=== PATIENT | female | born 1945 | race Hispanic/Latino ===

== ENCOUNTER 2021-01-07 12:45 | Inpatient (IN) | payer MEDICARE ==
[2021-01-08 00:16] LABS: Basophils # (Auto) 0.1 K/mm3 (0.0-0.1); Basophils % (Auto) 0.5 % (0.0-1.8); Eosinophils # (Auto) 0.1 K/mm3 (0.0-0.4); Eosinophils % (Auto) 1.4 % (0.0-4.3); Hematocrit 36.6 % (30.3-42.9); Hemoglobin 12.4 gm/dl (10.1-14.3); Lymphocytes # (Auto) 1.5 K/mm3 (1.2-5.4); Lymphocytes % (Auto) 13.7 % (13.4-35.0); Mean Corpuscular HGB Conc 34 % (30-34); Mean Corpuscular Volume 94 fl (79-97); Monocytes % (Auto) 9.4 % (0.0-7.3); Platelet Count 257 K/mm3 (140-440); Red Blood Count 3.89 M/mm3 (3.65-5.03); Red Cell Distribution Width 14.3 % (13.2-15.2)
[2021-01-08 00:37] LABS: Hepatitis C Virus Antibody Non-Reactive (NonReactive)
[2021-01-08 01:43] LABS: Hepatitis B Surface Antigen Nonreactive (Negative)
[2021-01-08 03:03] LABS: Alanine Aminotransferase 26 units/L (7-56); Albumin 3.6 g/dL (3.9-5); Blood Urea Nitrogen 18 mg/dL (7-17); Calcium 8.9 mg/dL (8.4-10.2); HDL Cholesterol 70 mg/dL (40-59); Hemolysis Index 6; LDL Cholesterol,Direct 55 mg/dL (50-130)
[2021-01-08 03:07] LABS: BUN/Creatinine Ratio 45
--- NOTE | 2021-01-08 10:31 | History and Physical Report ---
GP History & Physical - History of Present Illness Date of admission: 01/07/21 Date of Examination: 01/08/21 Reason for Admission: Danger to self, Danger to others, Failure of Outpatient Treatment, Severe anxiety/depression, Unable to care for self History of Present Illness: Per Admission Note: Pt reportedly was combative to staff @ the assisted living facility where she resides. She also threatened to kill herself & her daughter. Reportedly talks to herself & argues with herself. Does not sleep well. The patient was seen today. She is confused and talking to herself. The patient's speech is nonsensical and she is difficulty to follow. She is talking about her "mother and father." She then asks me if I know Kendell. The patient says "they all had their own thing." She did she she slept well and feels okay. The patient says "it's not bad for today. We'll work it out." Past Psychiatric History Unable to assess Past Medical History: None reported REVIEW OF SYSTEMS Unable to assess MENTAL STATUS EXAMINATION General Appearance and Behavior: Age appropriate, good hygiene, wearing appropriate clothes. Cooperation: Cooperative, calm Psychomotor Behavior: Psychomotor normal Mood: okay Affect and affective range: congruent with stated mood Thought Process: Impaired Thought Content: Speech: Nonsensical, rambling Suicidal Ideation: Denies Homicidal Ideation: Denies Hallucinations: Delusions: None Impulse Control: Questionable Insight and Judgment: Limited insight, fair judgment Memory: Impaired Attention: Distractible Orientation: Confused Assessment and Plan (1) Dementia with Behavioral Disturbance Treatment Plan Patient admitted for inpatient psychiatric evaluation, medication adjustment and close monitoring The patient's behavior, mood, sleep and appetite will be closely monitored. Patient enrolled in individual and group therapeutic sessions and encouraged to attend. Patient provided with a safe and structured environment. Patient's physical health needs will be addressed by the Hospitalist. Hospitalist Consulted Labs including CBC, CMP, Lipid profile and Hemoglobin A1C levels ordered for baseline reference Social Assessment will be completed and the Credit Professional will work with patient and family to ensure a suitable and safe disposition Medication adjustment will be made as clinically indicated Continue home medications Usual Wellness Anglican/Preservation: - Start Trazodone 50 mg po QHS & 50 mg po QHS PRN between 10 PM & 2 AM for insomnia - Start Melatonin 5 mg po QHS to promote circadian rhythm The patient agreed on the treatment plan, understood the risk, benefit, alternative treatment, potential consequence of no treatment, and gave informed consent. Estimated days: 5 Post hospital care: primary care provider, psychiatric provider Case staffed with Dr. Pendleton Legal Status: Voluntary Reaction to Hospitalization: Accepting Medications and Allergies Allergies Allergy/AdvReac Type Severity Reaction Status Date / Time hydromorphone [From Dilaudid] Allergy Unknown Verified 01/07/21 14:25 peanut Allergy Unknown Verified 01/07/21 14:25 Home Medications Medication Instructions Recorded Confirmed Last Taken Type Amlodipine Besylate [Norvasc] 5 mg PO DAILY 01/07/21 01/07/21 Unknown History Melatonin [Melatonin 10MG TAB] 10 mg PO HS 01/07/21 01/07/21 Unknown History Memantine [Namenda] 10 mg PO BID 01/07/21 01/07/21 Unknown History Nystatin Cream [Mycostatin Cream] 1 applic TP BID 01/07/21 01/07/21 Unknown History Rosuvastatin Calcium [Crestor] 20 mg PO QHS 01/07/21 01/07/21 Unknown History Vitamin E 400 unit PO DAILY 01/07/21 01/07/21 Unknown History busPIRone [Buspar] 5 mg PO BID 01/07/21 01/07/21 Unknown History donepeziL [Aricept] 10 mg PO QDAY 01/07/21 01/07/21 Unknown History methIMAzole [Tapazole] 5 mg PO QDAY 01/07/21 01/07/21 Unknown History Results - Results Labs/Vitals: Laboratory Last Values WBC 11.0 K/mm3 (4.5-11.0) 01/07/21 23:06 RBC 3.89 M/mm3 (3.65-5.03) 01/07/21 23:06 Hgb 12.4 gm/dl (10.1-14.3) 01/07/21 23:06 Hct 36.6 % (30.3-42.9) 01/07/21 23:06 MCV 94 fl (79-97) 01/07/21 23:06 MCH 32 pg (28-32) 01/07/21 23:06 MCHC 34 % (30-34) 01/07/21 23:06 RDW 14.3 % (13.2-15.2) 01/07/21 23:06 Plt Count 257 K/mm3 (140-440) 01/07/21 23:06 Lymph % (Auto) 13.7 % (13.4-35.0) 01/07/21 23:06 [place] % (Auto) 9.4 % (0.0-7.3) H 01/07/21 23:06 Eos % (Auto) 1.4 % (0.0-4.3) 01/07/21 23:06 Baso % (Auto) 0.5 % (0.0-1.8) 01/07/21 23:06 Lymph # (Auto) 1.5 K/mm3 (1.2-5.4) 01/07/21 23:06 [place] # (Auto) 1.0 K/mm3 (0.0-0.8) H 01/07/21 23:06 Eos # (Auto) 0.1 K/mm3 (0.0-0.4) 01/07/21 23:06 Baso # (Auto) 0.1 K/mm3 (0.0-0.1) 01/07/21 23:06 Seg Neutrophils % 75.0 % (40.0-70.0) H 01/07/21 23:06 Seg Neutrophils # 8.2 K/mm3 (1.8-7.7) H 01/07/21 23:06 Sodium 141 mmol/L (137-145) 01/07/21 23:06 Potassium 3.7 mmol/L (3.6-5.0) 01/07/21 23:06 Chloride 105.6 mmol/L (98-107) 01/07/21 23:06 Carbon Dioxide 19 mmol/L (22-30) L 01/07/21 23:06 Anion Gap 20 mmol/L 01/07/21 23:06 BUN 18 mg/dL (7-17) H 01/07/21 23:06 Creatinine 0.4 mg/dL (0.6-1.2) L 01/07/21 23:06 Estimated GFR > 60 ml/min 01/07/21 23:06 BUN/Creatinine Ratio 45 % 01/07/21 23:06 Glucose 92 mg/dL (65-100) 01/07/21 23:06 POC Glucose 158 mg/dL (70-105) H 01/07/21 19:47 Calcium 8.9 mg/dL (8.4-10.2) 01/07/21 23:06 Total Bilirubin 0.20 mg/dL (0.1-1.2) 01/07/21 23:06 AST 25 units/L (5-40) 01/07/21 23:06 ALT 26 units/L (7-56) 01/07/21 23:06 Alkaline Phosphatase 92 units/L (35-129) 01/07/21 23:06 Total Protein 6.8 g/dL (6.3-8.2) 01/07/21 23:06 Albumin 3.6 g/dL (3.9-5) L 01/07/21 23:06 Albumin/Globulin Ratio 1.1 % 01/07/21 23:06 Triglycerides 68 mg/dL (2-149) 01/07/21 23:06 Cholesterol 140 mg/dL (50-199) 01/07/21 23:06 LDL Cholesterol Direct 55 mg/dL (50-130) 01/07/21 23:06 HDL Cholesterol 70 mg/dL (40-59) H 01/07/21 23:06 Cholesterol/HDL Ratio 2.00 % 01/07/21 23:06 TSH 1.960 mlU/mL (0.270-4.200) 01/07/21 23:06 Hepatitis A IgM Ab Non-reactive (NonReactive) 01/07/21 23:06 Hep Bs Antigen Nonreactive (Negative) 01/07/21 23:06 Hep B Core IgM Ab Non-reactive (NonReactive) 01/07/21 23:06 Hepatitis C Antibody Non-reactive (NonReactive) 01/07/21 23:06 Last Vital Signs Temp 97.6 F 01/07/21 22:00 Pulse 89 01/07/21 22:00 Resp 18 01/07/21 22:00 BP 96/56 01/07/21 22:00 Pulse Ox Physical Examination - Constitutional Vitals: Vital Signs Temp Pulse Resp BP Pulse Ox 97.6 F 89 18 96/56 01/07/21 22:00 01/07/21 22:00 01/07/21 22:00 01/07/21 22:00 Temperature -Last 24 Hours Temperature 97.6 F Mental Status Exam - Vital signs Last Vital Signs Temp 97.6 F 01/07/21 22:00 Pulse 89 01/07/21 22:00 Resp 18 01/07/21 22:00 BP 96/56 01/07/21 22:00 Pulse Ox Physician Certification - Certification Statement Physician Certification Statement: This is an acknowledgement statement that ARCADIO CREWS is a 75 year old F who requires inpatient psychiatric admission for treatment which could reasonably be expected to improve the patient's condition for Estimated period of time patient will need to remain in the hospital: [ ] Plan for post-hospital care: [ ]
[2021-01-08] MEDS: busPIRone 5 MG TAB PO SCH ×2 (21:30→22:15)
[2021-01-08] MEDS: MEMANTINE 10 MG TAB PO SCH ×2 (21:30→22:16)
[2021-01-08] MEDS: MELATONIN 5 MG TAB PO SCH (21:30)
[2021-01-08] MEDS: NYSTATIN CREAM 15 GM TUBE TP SCH ×2 (21:30→22:16)
[2021-01-08] MEDS ORDERED: NON-FORMULARY EACH (Rosuvastatin Calcium [Crestor] 20 MG Tablet) PO SCH (22:00)
[2021-01-08] MEDS ORDERED: NON-FORMULARY EACH (Melatonin [Melatonin 10mg Tab] 10 MG Tablet) PO SCH (22:00)
[2021-01-08] MEDS: DONEPEZIL 10 MG TAB PO SCH (22:15)
[2021-01-08] MEDS: amLODIPine 5 MG TAB PO SCH (22:15)
[2021-01-08] MEDS: methIMAzole 5 MG TAB PO SCH (22:16)
--- NOTE | 2021-01-09 08:49 | Progress Note ---
Subjective Date of service: 01/09/21 Principal diagnosis: Dementia with Behavioral Disturbance Subjective Comment: The patient was seen today. She has orange marker on her eyebrows. She is confused. She says "I'm dressed and back in school now." The patient says she feels okay when asked. She then starts saying her daughter was head here. REVIEW OF SYSTEMS Unable to assess MENTAL STATUS EXAMINATION General Appearance and Behavior: Age appropriate, good hygiene, wearing appropriate clothes. Cooperation: Cooperative, calm Psychomotor Behavior: Psychomotor normal Mood: okay Affect and affective range: congruent with stated mood Thought Process: Impaired Thought Content: Speech: Nonsensical, rambling Suicidal Ideation: Denies Homicidal Ideation: Denies Hallucinations: Delusions: None Impulse Control: Questionable Insight and Judgment: Limited insight, fair judgment Memory: Impaired Attention: Distractible Orientation: Confused Assessment and Plan (1) Dementia with Behavioral Disturbance Treatment Plan Patient admitted for inpatient psychiatric evaluation, medication adjustment and close monitoring The patient's behavior, mood, sleep and appetite will be closely monitored. Patient enrolled in individual and group therapeutic sessions and encouraged to attend. Patient provided with a safe and structured environment. Patient's physical health needs will be addressed by the Hospitalist. Hospitalist Consulted Labs including CBC, CMP, Lipid profile and Hemoglobin A1C levels ordered for baseline reference Social Assessment will be completed and the Agronomy Professor will work with patient and family to ensure a suitable and safe disposition Medication adjustment will be made as clinically indicated Zoloft 25mg po daily Usual Wellness Faith/Preservation: - Start Trazodone 50 mg po QHS & 50 mg po QHS PRN between 10 PM & 2 AM for insomnia - Start Melatonin 5 mg po QHS to promote circadian rhythm The patient agreed on the treatment plan, understood the risk, benefit, alternative treatment, potential consequence of no treatment, and gave informed consent. Estimated days: 5 Post hospital care: primary care provider, psychiatric provider Case staffed with Dr. Pendleton Medications and Allergies Allergies Allergy/AdvReac Type Severity Reaction Status Date / Time hydromorphone [From Dilaudid] Allergy Unknown Verified 01/07/21 14:25 peanut Allergy Unknown Verified 01/07/21 14:25 Home Medications Medication Instructions Recorded Confirmed Last Taken Type Amlodipine Besylate [Norvasc] 5 mg PO DAILY 01/07/21 01/07/21 Unknown History Melatonin [Melatonin 10MG TAB] 10 mg PO HS 01/07/21 01/07/21 Unknown History Memantine [Namenda] 10 mg PO BID 01/07/21 01/07/21 Unknown History Nystatin Cream [Mycostatin Cream] 1 applic TP BID 01/07/21 01/07/21 Unknown History Rosuvastatin Calcium [Crestor] 20 mg PO QHS 01/07/21 01/07/21 Unknown History Vitamin E 400 unit PO DAILY 01/07/21 01/07/21 Unknown History busPIRone [Buspar] 5 mg PO BID 01/07/21 01/07/21 Unknown History donepeziL [Aricept] 10 mg PO QDAY 01/07/21 01/07/21 Unknown History methIMAzole [Tapazole] 5 mg PO QDAY 01/07/21 01/07/21 Unknown History Active Meds: Active Medications Amlodipine Besylate (Amlodipine 5 Mg Tab) 5 mg PO DAILY [facility] Last Admin: 01/08/21 22:15 Dose: Not Given Documented by: Atorvastatin Calcium (Atorvastatin 40 Mg Tab) 40 mg PO QHS [facility] Last Admin: 01/08/21 21:30 Dose: 40 mg Documented by: Buspirone HCl (Buspirone 5 Mg Tab) 5 mg PO BID [facility] Last Admin: 01/08/21 22:15 Dose: Not Given Documented by: Donepezil HCl (Donepezil 10 Mg Tab) 10 mg PO QDAY [facility] Last Admin: 01/08/21 22:15 Dose: Not Given Documented by: Melatonin (Melatonin 5 Mg Tab) 10 mg PO QHS [facility] Last Admin: 01/08/21 21:30 Dose: 10 mg Documented by: Memantine (Memantine 10 Mg Tab) 10 mg PO BID [facility] Last Admin: 01/08/21 22:16 Dose: Not Given Documented by: Methimazole (Methimazole 5 Mg Tab) 5 mg PO QDAY [facility] Last Admin: 01/08/21 22:16 Dose: Not Given Documented by: Nystatin (Nystatin Cream 15 Gm Tube) 1 applic TP BID [facility] Last Admin: 01/08/21 22:16 Dose: Not Given Documented by: Results - Results Labs/Vitals: Laboratory Last Values WBC 11.0 K/mm3 (4.5-11.0) 01/07/21 23:06 RBC 3.89 M/mm3 (3.65-5.03) 01/07/21 23:06 Hgb 12.4 gm/dl (10.1-14.3) 01/07/21 23:06 Hct 36.6 % (30.3-42.9) 01/07/21 23:06 MCV 94 fl (79-97) 01/07/21 23:06 MCH 32 pg (28-32) 01/07/21 23:06 MCHC 34 % (30-34) 01/07/21 23:06 RDW 14.3 % (13.2-15.2) 01/07/21 23:06 Plt Count 257 K/mm3 (140-440) 01/07/21 23:06 Lymph % (Auto) 13.7 % (13.4-35.0) 01/07/21 23:06 [place] % (Auto) 9.4 % (0.0-7.3) H 01/07/21 23:06 Eos % (Auto) 1.4 % (0.0-4.3) 01/07/21 23:06 Baso % (Auto) 0.5 % (0.0-1.8) 01/07/21 23:06 Lymph # (Auto) 1.5 K/mm3 (1.2-5.4) 01/07/21 23:06 [place] # (Auto) 1.0 K/mm3 (0.0-0.8) H 01/07/21 23:06 Eos # (Auto) 0.1 K/mm3 (0.0-0.4) 01/07/21 23:06 Baso # (Auto) 0.1 K/mm3 (0.0-0.1) 01/07/21 23:06 Seg Neutrophils % 75.0 % (40.0-70.0) H 01/07/21 23:06 Seg Neutrophils # 8.2 K/mm3 (1.8-7.7) H 01/07/21 23:06 Sodium 141 mmol/L (137-145) 01/07/21 23:06 Potassium 3.7 mmol/L (3.6-5.0) 01/07/21 23:06 Chloride 105.6 mmol/L (98-107) 01/07/21 23:06 Carbon Dioxide 19 mmol/L (22-30) L 01/07/21 23:06 Anion Gap 20 mmol/L 01/07/21 23:06 BUN 18 mg/dL (7-17) H 01/07/21 23:06 Creatinine 0.4 mg/dL (0.6-1.2) L 01/07/21 23:06 Estimated GFR > 60 ml/min 01/07/21 23:06 BUN/Creatinine Ratio 45 % 01/07/21 23:06 Glucose 92 mg/dL (65-100) 01/07/21 23:06 POC Glucose 158 mg/dL (70-105) H 01/07/21 19:47 Calcium 8.9 mg/dL (8.4-10.2) 01/07/21 23:06 Total Bilirubin 0.20 mg/dL (0.1-1.2) 01/07/21 23:06 AST 25 units/L (5-40) 01/07/21 23:06 ALT 26 units/L (7-56) 01/07/21 23:06 Alkaline Phosphatase 92 units/L (35-129) 01/07/21 23:06 Total Protein 6.8 g/dL (6.3-8.2) 01/07/21 23:06 Albumin 3.6 g/dL (3.9-5) L 01/07/21 23:06 Albumin/Globulin Ratio 1.1 % 01/07/21 23:06 Triglycerides 68 mg/dL (2-149) 01/07/21 23:06 Cholesterol 140 mg/dL (50-199) 01/07/21 23:06 LDL Cholesterol Direct 55 mg/dL (50-130) 01/07/21 23:06 HDL Cholesterol 70 mg/dL (40-59) H 01/07/21 23:06 Cholesterol/HDL Ratio 2.00 % 01/07/21 23:06 TSH 1.960 mlU/mL (0.270-4.200) 01/07/21 23:06 Hepatitis A IgM Ab Non-reactive (NonReactive) 01/07/21 23:06 Hep Bs Antigen Nonreactive (Negative) 01/07/21 23:06 Hep B Core IgM Ab Non-reactive (NonReactive) 01/07/21 23:06 Hepatitis C Antibody Non-reactive (NonReactive) 01/07/21 23:06 Last Vital Signs Temp 98.9 F 01/08/21 23:53 Pulse 81 01/08/21 23:53 Resp 16 01/08/21 23:53 BP 135/57 01/08/21 23:53 Pulse Ox 95 01/08/21 23:53
[2021-01-09] MEDS: amLODIPine 5 MG TAB PO SCH (09:47)
[2021-01-09] MEDS: busPIRone 5 MG TAB PO SCH ×2 (10:07→21:04)
[2021-01-09] MEDS: SERTRALINE 25 MG TAB PO SCH (10:07)
[2021-01-09] MEDS: DONEPEZIL 10 MG TAB PO SCH (10:07)
[2021-01-09] MEDS: MEMANTINE 10 MG TAB PO SCH ×2 (10:07→21:04)
[2021-01-09] MEDS: methIMAzole 5 MG TAB PO SCH (10:07)
[2021-01-09] MEDS: NYSTATIN CREAM 15 GM TUBE TP SCH ×2 (10:08→21:03)
[2021-01-09] MEDS: MELATONIN 5 MG TAB PO SCH (21:04)
--- NOTE | 2021-01-10 08:29 | Consultation ---
History of Present Illness - Reason for Consult Consult date: 01/10/21 Medical management Requesting physician: ZAFAR COLLAZO - History of Present Illness 75-year-old female patient with multiple psychiatric diagnoses and medical problems like hypertension dyslipidemia dementia hyper thyroidism was admitted to [facility] floor to evaluate and treat patient's severe anxiety depression unable to care for self and failure to respond to outpatient therapy. Hospitalist service was consulted for medical consult and medical management. When I evaluated the patient patient is alert and awake but confused, responding to very simple questions appropriately Patient is under activities room, when asked if anything was bothering her she said no Patient denies chest pain or shortness of breath No other complaints reported by the nursing staff Past History Past Medical History: hyperthyroidism, hypertension, hyperlipidemia, other (Dementia) Past Surgical History: No surgical history Social history: smoking (Former smoker), other (Denies recreational drug use). denies: alcohol abuse Family history: no significant family history Medications and Allergies Allergies Allergy/AdvReac Type Severity Reaction Status Date / Time hydromorphone [From Dilaudid] Allergy Unknown Verified 01/07/21 14:25 peanut Allergy Unknown Verified 01/07/21 14:25 Home Medications Medication Instructions Recorded Confirmed Last Taken Type Amlodipine Besylate [Norvasc] 5 mg PO DAILY 01/07/21 01/07/21 Unknown History Melatonin [Melatonin 10MG TAB] 10 mg PO HS 01/07/21 01/07/21 Unknown History Memantine [Namenda] 10 mg PO BID 01/07/21 01/07/21 Unknown History Nystatin Cream [Mycostatin Cream] 1 applic TP BID 01/07/21 01/07/21 Unknown History Rosuvastatin Calcium [Crestor] 20 mg PO QHS 01/07/21 01/07/21 Unknown History Vitamin E 400 unit PO DAILY 01/07/21 01/07/21 Unknown History busPIRone [Buspar] 5 mg PO BID 01/07/21 01/07/21 Unknown History donepeziL [Aricept] 10 mg PO QDAY 01/07/21 01/07/21 Unknown History methIMAzole [Tapazole] 5 mg PO QDAY 01/07/21 01/07/21 Unknown History Active Meds: Active Medications Amlodipine Besylate (Amlodipine 5 Mg Tab) 5 mg PO DAILY [facility] Last Admin: 01/09/21 09:47 Dose: Not Given Documented by: Atorvastatin Calcium (Atorvastatin 40 Mg Tab) 40 mg PO QHS [facility] Last Admin: 01/09/21 21:04 Dose: 40 mg Documented by: Buspirone HCl (Buspirone 5 Mg Tab) 5 mg PO BID [facility] Last Admin: 01/09/21 21:04 Dose: 5 mg Documented by: Donepezil HCl (Donepezil 10 Mg Tab) 10 mg PO QDAY [facility] Last Admin: 01/09/21 10:07 Dose: 10 mg Documented by: Melatonin (Melatonin 5 Mg Tab) 10 mg PO QHS [facility] Last Admin: 01/09/21 21:04 Dose: 10 mg Documented by: Memantine (Memantine 10 Mg Tab) 10 mg PO BID [facility] Last Admin: 01/09/21 21:04 Dose: 10 mg Documented by: Methimazole (Methimazole 5 Mg Tab) 5 mg PO QDAY [facility] Last Admin: 01/09/21 10:07 Dose: 5 mg Documented by: Nystatin (Nystatin Cream 15 Gm Tube) 1 applic TP BID [facility] Last Admin: 01/09/21 21:03 Dose: 1 applic Documented by: Sertraline HCl (Sertraline 25 Mg Tab) 25 mg PO QDAY [facility] Last Admin: 01/09/21 10:07 Dose: 25 mg Documented by: Review of Systems ROS unobtainable: due to mental status Exam - Constitutional Vitals: Temp Pulse Resp BP Pulse Ox 98.7 F 76 19 120/73 91 01/10/21 07:47 01/10/21 07:47 01/10/21 07:47 01/10/21 07:47 01/10/21 07:47 General appearance: Present: no acute distress, well-nourished, other (Confused at times) - EENT Eyes: Present: PERRL, EOM intact - Neck Neck: Present: supple, enlarged thyroid - Respiratory Respiratory effort: normal Respiratory: bilateral: diminished, negative: rales, rhonchi, wheezing - Cardiovascular Rhythm: regular Heart Sounds: Present: S1 & S2 - Extremities Extremities: no ischemia, No edema - Abdominal General gastrointestinal: Present: soft, non-tender, non-distended, normal bowel sounds - Integumentary Integumentary: Present: clear, warm - Musculoskeletal Musculoskeletal: generalized weakness - Psychiatric Psychiatric: cooperative, other (Confused) - Neurologic Neurologic: moves all extremities Results - Labs CBC & Chem 7: 01/07/21 23:06 01/07/21 23:06 Assessment and Plan --Hypertension; well controlled Continue current antihypertensives and as needed medications --History of hypothyroidism; Continue home medication methimazole Supportive care --Dementia; continue Aricept and memantine Supportive care --Dyslipidemia; Low-cholesterol diet, continue statin --History of behavioral disturbances; Management per psych --DVT prophylaxis; SCDs while resting We will closely monitor the patient and adjust the management as needed Thank you for this consult we will follow the patient along with you Call us with questions Plan of care reviewed with patient's nurse .
[2021-01-10] MEDS: amLODIPine 5 MG TAB PO SCH (09:52)
[2021-01-10] MEDS: methIMAzole 5 MG TAB PO SCH (09:52)
[2021-01-10] MEDS: MEMANTINE 10 MG TAB PO SCH ×2 (09:53→21:01)
[2021-01-10] MEDS: SERTRALINE 25 MG TAB PO SCH (09:53)
[2021-01-10] MEDS: busPIRone 5 MG TAB PO SCH ×2 (09:53→21:01)
[2021-01-10] MEDS: DONEPEZIL 10 MG TAB PO SCH (09:53)
[2021-01-10] MEDS: NYSTATIN CREAM 15 GM TUBE TP SCH ×2 (09:53→21:00)
--- NOTE | 2021-01-10 10:09 | Progress Note ---
Subjective Date of service: 01/10/21 Principal diagnosis: Dementia with Behavioral Disturbance Subjective Comment: The patient was seen today. She has orange marker on her eyebrows. She is confused. She says she feels fine and she slept well. The patient denies SI/HI. She is talking to herself and leaning in front of her juice whispering "you're hurting me." REVIEW OF SYSTEMS Unable to assess MENTAL STATUS EXAMINATION General Appearance and Behavior: Age appropriate, good hygiene, wearing appropriate clothes. Cooperation: Cooperative, calm Psychomotor Behavior: Psychomotor normal Mood: okay Affect and affective range: congruent with stated mood Thought Process: Impaired Thought Content: Speech: Nonsensical, rambling Suicidal Ideation: Denies Homicidal Ideation: Denies Hallucinations: Delusions: None Impulse Control: Questionable Insight and Judgment: Limited insight, fair judgment Memory: Impaired Attention: Distractible Orientation: Confused Assessment and Plan (1) Dementia with Behavioral Disturbance Treatment Plan Patient admitted for inpatient psychiatric evaluation, medication adjustment and close monitoring The patient's behavior, mood, sleep and appetite will be closely monitored. Patient enrolled in individual and group therapeutic sessions and encouraged to attend. Patient provided with a safe and structured environment. Patient's physical health needs will be addressed by the Hospitalist. Hospitalist Consulted Labs including CBC, CMP, Lipid profile and Hemoglobin A1C levels ordered for baseline reference Social Assessment will be completed and the Parts Back Counter Man will work with patient and family to ensure a suitable and safe disposition Medication adjustment will be made as clinically indicated Risperidone 0.25mg po BID Usual Wellness [facility]: - Start Trazodone 50 mg po QHS & 50 mg po QHS PRN between 10 PM & 2 AM for insomnia - Start Melatonin 5 mg po QHS to promote circadian rhythm The patient agreed on the treatment plan, understood the risk, benefit, alternative treatment, potential consequence of no treatment, and gave informed consent. Estimated days: 5 Post hospital care: primary care provider, psychiatric provider Case staffed with Dr. Pendleton Medications and Allergies Allergies Allergy/AdvReac Type Severity Reaction Status Date / Time hydromorphone [From Dilaudid] Allergy Unknown Verified 01/07/21 14:25 peanut Allergy Unknown Verified 01/07/21 14:25 Home Medications Medication Instructions Recorded Confirmed Last Taken Type Amlodipine Besylate [Norvasc] 5 mg PO DAILY 01/07/21 01/07/21 Unknown History Melatonin [Melatonin 10MG TAB] 10 mg PO HS 01/07/21 01/07/21 Unknown History Memantine [Namenda] 10 mg PO BID 01/07/21 01/07/21 Unknown History Nystatin Cream [Mycostatin Cream] 1 applic TP BID 01/07/21 01/07/21 Unknown History Rosuvastatin Calcium [Crestor] 20 mg PO QHS 01/07/21 01/07/21 Unknown History Vitamin E 400 unit PO DAILY 01/07/21 01/07/21 Unknown History busPIRone [Buspar] 5 mg PO BID 01/07/21 01/07/21 Unknown History donepeziL [Aricept] 10 mg PO QDAY 01/07/21 01/07/21 Unknown History methIMAzole [Tapazole] 5 mg PO QDAY 01/07/21 01/07/21 Unknown History Active Meds: Active Medications Amlodipine Besylate (Amlodipine 5 Mg Tab) 5 mg PO DAILY [facility] Last Admin: 01/10/21 09:52 Dose: 5 mg Documented by: Atorvastatin Calcium (Atorvastatin 40 Mg Tab) 40 mg PO QHS [facility] Last Admin: 01/09/21 21:04 Dose: 40 mg Documented by: Buspirone HCl (Buspirone 5 Mg Tab) 5 mg PO BID [facility] Last Admin: 01/10/21 09:53 Dose: 5 mg Documented by: Donepezil HCl (Donepezil 10 Mg Tab) 10 mg PO QDAY [facility] Last Admin: 01/10/21 09:53 Dose: 10 mg Documented by: Melatonin (Melatonin 5 Mg Tab) 10 mg PO QHS [facility] Last Admin: 01/09/21 21:04 Dose: 10 mg Documented by: Memantine (Memantine 10 Mg Tab) 10 mg PO BID [facility] Last Admin: 01/10/21 09:53 Dose: 10 mg Documented by: Methimazole (Methimazole 5 Mg Tab) 5 mg PO QDAY [facility] Last Admin: 01/10/21 09:52 Dose: 5 mg Documented by: Nystatin (Nystatin Cream 15 Gm Tube) 1 applic TP BID [facility] Last Admin: 01/10/21 09:53 Dose: 1 applic Documented by: Sertraline HCl (Sertraline 25 Mg Tab) 25 mg PO QDAY [facility] Last Admin: 01/10/21 09:53 Dose: 25 mg Documented by: Results - Results Labs/Vitals: Laboratory Last Values WBC 11.0 K/mm3 (4.5-11.0) 01/07/21 23:06 RBC 3.89 M/mm3 (3.65-5.03) 01/07/21 23:06 Hgb 12.4 gm/dl (10.1-14.3) 01/07/21 23:06 Hct 36.6 % (30.3-42.9) 01/07/21 23:06 MCV 94 fl (79-97) 01/07/21 23:06 MCH 32 pg (28-32) 01/07/21 23:06 MCHC 34 % (30-34) 01/07/21 23:06 RDW 14.3 % (13.2-15.2) 01/07/21 23:06 Plt Count 257 K/mm3 (140-440) 01/07/21 23:06 Lymph % (Auto) 13.7 % (13.4-35.0) 01/07/21 23:06 [place] % (Auto) 9.4 % (0.0-7.3) H 01/07/21 23:06 Eos % (Auto) 1.4 % (0.0-4.3) 01/07/21 23:06 Baso % (Auto) 0.5 % (0.0-1.8) 01/07/21 23:06 Lymph # (Auto) 1.5 K/mm3 (1.2-5.4) 01/07/21 23:06 [place] # (Auto) 1.0 K/mm3 (0.0-0.8) H 01/07/21 23:06 Eos # (Auto) 0.1 K/mm3 (0.0-0.4) 01/07/21 23:06 Baso # (Auto) 0.1 K/mm3 (0.0-0.1) 01/07/21 23:06 Seg Neutrophils % 75.0 % (40.0-70.0) H 01/07/21 23:06 Seg Neutrophils # 8.2 K/mm3 (1.8-7.7) H 01/07/21 23:06 Sodium 141 mmol/L (137-145) 01/07/21 23:06 Potassium 3.7 mmol/L (3.6-5.0) 01/07/21 23:06 Chloride 105.6 mmol/L (98-107) 01/07/21 23:06 Carbon Dioxide 19 mmol/L (22-30) L 01/07/21 23:06 Anion Gap 20 mmol/L 01/07/21 23:06 BUN 18 mg/dL (7-17) H 01/07/21 23:06 Creatinine 0.4 mg/dL (0.6-1.2) L 01/07/21 23:06 Estimated GFR > 60 ml/min 01/07/21 23:06 BUN/Creatinine Ratio 45 % 01/07/21 23:06 Glucose 92 mg/dL (65-100) 01/07/21 23:06 POC Glucose 158 mg/dL (70-105) H 01/07/21 19:47 Calcium 8.9 mg/dL (8.4-10.2) 01/07/21 23:06 Total Bilirubin 0.20 mg/dL (0.1-1.2) 01/07/21 23:06 AST 25 units/L (5-40) 01/07/21 23:06 ALT 26 units/L (7-56) 01/07/21 23:06 Alkaline Phosphatase 92 units/L (35-129) 01/07/21 23:06 Total Protein 6.8 g/dL (6.3-8.2) 01/07/21 23:06 Albumin 3.6 g/dL (3.9-5) L 01/07/21 23:06 Albumin/Globulin Ratio 1.1 % 01/07/21 23:06 Triglycerides 68 mg/dL (2-149) 01/07/21 23:06 Cholesterol 140 mg/dL (50-199) 01/07/21 23:06 LDL Cholesterol Direct 55 mg/dL (50-130) 01/07/21 23:06 HDL Cholesterol 70 mg/dL (40-59) H 01/07/21 23:06 Cholesterol/HDL Ratio 2.00 % 01/07/21 23:06 TSH 1.960 mlU/mL (0.270-4.200) 01/07/21 23:06 Hepatitis A IgM Ab Non-reactive (NonReactive) 01/07/21 23:06 Hep Bs Antigen Nonreactive (Negative) 01/07/21 23:06 Hep B Core IgM Ab Non-reactive (NonReactive) 01/07/21 23:06 Hepatitis C Antibody Non-reactive (NonReactive) 01/07/21 23:06 Last Vital Signs Temp 98.7 F 01/10/21 08:49 Pulse 88 01/10/21 09:52 Resp 19 01/10/21 07:47 BP 120/73 01/10/21 09:52 Pulse Ox 91 01/10/21 07:47
[2021-01-10] MEDS: risperiDONE 0.25 MG TAB PO SCH ×2 (10:32→21:01)
[2021-01-10] MEDS: MELATONIN 5 MG TAB PO SCH (21:01)
--- NOTE | 2021-01-11 09:22 | Progress Note ---
Subjective Date of service: 01/11/21 Principal diagnosis: Dementia with Behavioral Disturbance Subjective Comment: The patient was seen today. She is lying down in bed awake. The patient is confused, but pleasant. She says "life is great." The patient says she feels "fine" when asked. She also says she slept good. She is rambling. REVIEW OF SYSTEMS Unable to assess MENTAL STATUS EXAMINATION General Appearance and Behavior: Age appropriate, good hygiene, wearing appropriate clothes. Cooperation: Cooperative, calm Psychomotor Behavior: Psychomotor normal Mood: okay Affect and affective range: congruent with stated mood Thought Process: Impaired Thought Content: Speech: Nonsensical, rambling Suicidal Ideation: Denies Homicidal Ideation: Denies Hallucinations: Delusions: None Impulse Control: Questionable Insight and Judgment: Limited insight, fair judgment Memory: Impaired Attention: Distractible Orientation: Confused Assessment and Plan (1) Dementia with Behavioral Disturbance Treatment Plan Patient admitted for inpatient psychiatric evaluation, medication adjustment and close monitoring The patient's behavior, mood, sleep and appetite will be closely monitored. Patient enrolled in individual and group therapeutic sessions and encouraged to attend. Patient provided with a safe and structured environment. Patient's physical health needs will be addressed by the Hospitalist. Hospitalist Consulted Labs including CBC, CMP, Lipid profile and Hemoglobin A1C levels ordered for baseline reference Social Assessment will be completed and the Night Shift will work with patient and family to ensure a suitable and safe disposition Medication adjustment will be made as clinically indicated Started Risperidone 0.25mg po BID yesterday Usual Wellness [facility]: - Start Trazodone 50 mg po QHS & 50 mg po QHS PRN between 10 PM & 2 AM for insomnia - Start Melatonin 5 mg po QHS to promote circadian rhythm The patient agreed on the treatment plan, understood the risk, benefit, alternative treatment, potential consequence of no treatment, and gave informed consent. Estimated days: 5 Post hospital care: primary care provider, psychiatric provider Case staffed with Dr. Pendleton Medications and Allergies Allergies Allergy/AdvReac Type Severity Reaction Status Date / Time hydromorphone [From Dilaudid] Allergy Unknown Verified 01/07/21 14:25 peanut Allergy Unknown Verified 01/07/21 14:25 Home Medications Medication Instructions Recorded Confirmed Last Taken Type Amlodipine Besylate [Norvasc] 5 mg PO DAILY 01/07/21 01/07/21 Unknown History Melatonin [Melatonin 10MG TAB] 10 mg PO HS 01/07/21 01/07/21 Unknown History Memantine [Namenda] 10 mg PO BID 01/07/21 01/07/21 Unknown History Nystatin Cream [Mycostatin Cream] 1 applic TP BID 01/07/21 01/07/21 Unknown History Rosuvastatin Calcium [Crestor] 20 mg PO QHS 01/07/21 01/07/21 Unknown History Vitamin E 400 unit PO DAILY 01/07/21 01/07/21 Unknown History busPIRone [Buspar] 5 mg PO BID 01/07/21 01/07/21 Unknown History donepeziL [Aricept] 10 mg PO QDAY 01/07/21 01/07/21 Unknown History methIMAzole [Tapazole] 5 mg PO QDAY 01/07/21 01/07/21 Unknown History Active Meds: Active Medications Amlodipine Besylate (Amlodipine 5 Mg Tab) 5 mg PO DAILY [facility] Last Admin: 01/10/21 09:52 Dose: 5 mg Documented by: Atorvastatin Calcium (Atorvastatin 40 Mg Tab) 40 mg PO QHS [facility] Last Admin: 01/10/21 21:01 Dose: 40 mg Documented by: Buspirone HCl (Buspirone 5 Mg Tab) 5 mg PO BID [facility] Last Admin: 01/10/21 21:01 Dose: 5 mg Documented by: Donepezil HCl (Donepezil 10 Mg Tab) 10 mg PO QDAY [facility] Last Admin: 01/10/21 09:53 Dose: 10 mg Documented by: Melatonin (Melatonin 5 Mg Tab) 10 mg PO QHS [facility] Last Admin: 01/10/21 21:01 Dose: 10 mg Documented by: Memantine (Memantine 10 Mg Tab) 10 mg PO BID [facility] Last Admin: 01/10/21 21:01 Dose: 10 mg Documented by: Methimazole (Methimazole 5 Mg Tab) 5 mg PO QDAY [facility] Last Admin: 01/10/21 09:52 Dose: 5 mg Documented by: Nystatin (Nystatin Cream 15 Gm Tube) 1 applic TP BID [facility] Last Admin: 01/10/21 21:00 Dose: 1 applic Documented by: Risperidone (Risperidone 0.25 Mg Tab) 0.25 mg PO BID [facility] Last Admin: 01/10/21 21:01 Dose: 0.25 mg Documented by: Sertraline HCl (Sertraline 25 Mg Tab) 25 mg PO QDAY [facility] Last Admin: 01/10/21 09:53 Dose: 25 mg Documented by: Results - Results Labs/Vitals: Laboratory Last Values WBC 11.0 K/mm3 (4.5-11.0) 01/07/21 23:06 RBC 3.89 M/mm3 (3.65-5.03) 01/07/21 23:06 Hgb 12.4 gm/dl (10.1-14.3) 01/07/21 23:06 Hct 36.6 % (30.3-42.9) 01/07/21 23:06 MCV 94 fl (79-97) 01/07/21 23:06 MCH 32 pg (28-32) 01/07/21 23:06 MCHC 34 % (30-34) 01/07/21 23:06 RDW 14.3 % (13.2-15.2) 01/07/21 23:06 Plt Count 257 K/mm3 (140-440) 01/07/21 23:06 Lymph % (Auto) 13.7 % (13.4-35.0) 01/07/21 23:06 [place] % (Auto) 9.4 % (0.0-7.3) H 01/07/21 23:06 Eos % (Auto) 1.4 % (0.0-4.3) 01/07/21 23:06 Baso % (Auto) 0.5 % (0.0-1.8) 01/07/21 23:06 Lymph # (Auto) 1.5 K/mm3 (1.2-5.4) 01/07/21 23:06 [place] # (Auto) 1.0 K/mm3 (0.0-0.8) H 01/07/21 23:06 Eos # (Auto) 0.1 K/mm3 (0.0-0.4) 01/07/21 23:06 Baso # (Auto) 0.1 K/mm3 (0.0-0.1) 01/07/21 23:06 Seg Neutrophils % 75.0 % (40.0-70.0) H 01/07/21 23:06 Seg Neutrophils # 8.2 K/mm3 (1.8-7.7) H 01/07/21 23:06 Sodium 141 mmol/L (137-145) 01/07/21 23:06 Potassium 3.7 mmol/L (3.6-5.0) 01/07/21 23:06 Chloride 105.6 mmol/L (98-107) 01/07/21 23:06 Carbon Dioxide 19 mmol/L (22-30) L 01/07/21 23:06 Anion Gap 20 mmol/L 01/07/21 23:06 BUN 18 mg/dL (7-17) H 01/07/21 23:06 Creatinine 0.4 mg/dL (0.6-1.2) L 01/07/21 23:06 Estimated GFR > 60 ml/min 01/07/21 23:06 BUN/Creatinine Ratio 45 % 01/07/21 23:06 Glucose 92 mg/dL (65-100) 01/07/21 23:06 POC Glucose 158 mg/dL (70-105) H 01/07/21 19:47 Calcium 8.9 mg/dL (8.4-10.2) 01/07/21 23:06 Total Bilirubin 0.20 mg/dL (0.1-1.2) 01/07/21 23:06 AST 25 units/L (5-40) 01/07/21 23:06 ALT 26 units/L (7-56) 01/07/21 23:06 Alkaline Phosphatase 92 units/L (35-129) 01/07/21 23:06 Total Protein 6.8 g/dL (6.3-8.2) 01/07/21 23:06 Albumin 3.6 g/dL (3.9-5) L 01/07/21 23:06 Albumin/Globulin Ratio 1.1 % 01/07/21 23:06 Triglycerides 68 mg/dL (2-149) 01/07/21 23:06 Cholesterol 140 mg/dL (50-199) 01/07/21 23:06 LDL Cholesterol Direct 55 mg/dL (50-130) 01/07/21 23:06 HDL Cholesterol 70 mg/dL (40-59) H 01/07/21 23:06 Cholesterol/HDL Ratio 2.00 % 01/07/21 23:06 TSH 1.960 mlU/mL (0.270-4.200) 01/07/21 23:06 Hepatitis A IgM Ab Non-reactive (NonReactive) 01/07/21 23:06 Hep Bs Antigen Nonreactive (Negative) 01/07/21 23:06 Hep B Core IgM Ab Non-reactive (NonReactive) 01/07/21 23:06 Hepatitis C Antibody Non-reactive (NonReactive) 01/07/21 23:06 Last Vital Signs Temp 98.7 F 01/10/21 22:00 Pulse 73 01/10/21 22:00 Resp 18 01/10/21 22:00 BP 105/57 01/10/21 22:00 Pulse Ox 97 01/10/21 22:00
--- NOTE | 2021-01-11 10:45 | Event Note ---
Date: 01/11/21 Spoke with the patient's daughter today about the patient's progress and discharge planning.She says she has called several places to get her mom placed because she feels her mom can not take care of herself. Neela says the patient's dementia has been declining. She also says her mom says at times the she wants to and doesn't want to live. She is wanting her mother placed in a SNF as she feels this is the best option for her.
[2021-01-11] MEDS: amLODIPine 5 MG TAB PO SCH (11:07)
[2021-01-11] MEDS: DONEPEZIL 10 MG TAB PO SCH (11:08)
[2021-01-11] MEDS: methIMAzole 5 MG TAB PO SCH (11:08)
[2021-01-11] MEDS: busPIRone 5 MG TAB PO SCH ×2 (11:08→21:34)
[2021-01-11] MEDS: risperiDONE 0.25 MG TAB PO SCH ×2 (11:08→21:39)
[2021-01-11] MEDS: MEMANTINE 10 MG TAB PO SCH ×2 (11:08→21:37)
[2021-01-11] MEDS: SERTRALINE 25 MG TAB PO SCH (11:09)
[2021-01-11] MEDS: NYSTATIN CREAM 15 GM TUBE TP SCH ×2 (13:19→21:38)
[2021-01-11] MEDS: MELATONIN 5 MG TAB PO SCH (21:34)
--- NOTE | 2021-01-12 09:22 | Progress Note ---
Subjective Date of service: 01/12/21 Principal diagnosis: Dementia with Behavioral Disturbance Subjective Comment: The patient was seen today. She is calm and pleasant. She is confused. The patient says she feels "pretty good." She denies SI/HI. She says she slept well. Staff states the patient was agitated & combative during AM care and requires constant redirection. REVIEW OF SYSTEMS Unable to assess MENTAL STATUS EXAMINATION General Appearance and Behavior: Age appropriate, good hygiene, wearing appropriate clothes. Cooperation: Cooperative, calm Psychomotor Behavior: Psychomotor normal Mood: okay Affect and affective range: congruent with stated mood Thought Process: Impaired Thought Content: Speech: Nonsensical, rambling Suicidal Ideation: Denies Homicidal Ideation: Denies Hallucinations: Delusions: None Impulse Control: Questionable Insight and Judgment: Limited insight, fair judgment Memory: Impaired Attention: Distractible Orientation: Confused Assessment and Plan (1) Dementia with Behavioral Disturbance Treatment Plan Patient admitted for inpatient psychiatric evaluation, medication adjustment and close monitoring The patient's behavior, mood, sleep and appetite will be closely monitored. Patient enrolled in individual and group therapeutic sessions and encouraged to attend. Patient provided with a safe and structured environment. Patient's physical health needs will be addressed by the Hospitalist. Hospitalist Consulted Labs including CBC, CMP, Lipid profile and Hemoglobin A1C levels ordered for baseline reference Social Assessment will be completed and the Operations Project Manager will work with patient and family to ensure a suitable and safe disposition Medication adjustment will be made as clinically indicated Continue Risperidone 0.25mg po BID Valproic 125mg po daily Usual Wellness [facility]: - Start Trazodone 50 mg po QHS & 50 mg po QHS PRN between 10 PM & 2 AM for insomnia - Start Melatonin 5 mg po QHS to promote circadian rhythm The patient agreed on the treatment plan, understood the risk, benefit, alternative treatment, potential consequence of no treatment, and gave informed consent. Estimated days: 5 Post hospital care: primary care provider, psychiatric provider Case staffed with Dr. Pendleton Medications and Allergies Allergies Allergy/AdvReac Type Severity Reaction Status Date / Time hydromorphone [From Dilaudid] Allergy Unknown Verified 01/07/21 14:25 peanut Allergy Unknown Verified 01/07/21 14:25 Home Medications Medication Instructions Recorded Confirmed Last Taken Type Amlodipine Besylate [Norvasc] 5 mg PO DAILY 01/07/21 01/07/21 Unknown History Melatonin [Melatonin 10MG TAB] 10 mg PO HS 01/07/21 01/07/21 Unknown History Memantine [Namenda] 10 mg PO BID 01/07/21 01/07/21 Unknown History Nystatin Cream [Mycostatin Cream] 1 applic TP BID 01/07/21 01/07/21 Unknown History Rosuvastatin Calcium [Crestor] 20 mg PO QHS 01/07/21 01/07/21 Unknown History Vitamin E 400 unit PO DAILY 01/07/21 01/07/21 Unknown History busPIRone [Buspar] 5 mg PO BID 01/07/21 01/07/21 Unknown History donepeziL [Aricept] 10 mg PO QDAY 01/07/21 01/07/21 Unknown History methIMAzole [Tapazole] 5 mg PO QDAY 01/07/21 01/07/21 Unknown History Active Meds: Active Medications Amlodipine Besylate (Amlodipine 5 Mg Tab) 5 mg PO DAILY [facility] Last Admin: 01/11/21 11:07 Dose: Not Given Documented by: Atorvastatin Calcium (Atorvastatin 40 Mg Tab) 40 mg PO QHS [facility] Last Admin: 01/11/21 21:34 Dose: 40 mg Documented by: Buspirone HCl (Buspirone 5 Mg Tab) 5 mg PO BID [facility] Last Admin: 01/11/21 21:34 Dose: 5 mg Documented by: Donepezil HCl (Donepezil 10 Mg Tab) 10 mg PO QDAY [facility] Last Admin: 01/11/21 11:08 Dose: 10 mg Documented by: Melatonin (Melatonin 5 Mg Tab) 10 mg PO QHS [facility] Last Admin: 01/11/21 21:34 Dose: 10 mg Documented by: Memantine (Memantine 10 Mg Tab) 10 mg PO BID [facility] Last Admin: 01/11/21 21:37 Dose: 10 mg Documented by: Methimazole (Methimazole 5 Mg Tab) 5 mg PO QDAY [facility] Last Admin: 01/11/21 11:08 Dose: 5 mg Documented by: Nystatin (Nystatin Cream 15 Gm Tube) 1 applic TP BID [facility] Last Admin: 01/11/21 21:38 Dose: 1 applic Documented by: Risperidone (Risperidone 0.25 Mg Tab) 0.25 mg PO BID [facility] Last Admin: 01/11/21 21:39 Dose: 0.25 mg Documented by: Sertraline HCl (Sertraline 25 Mg Tab) 25 mg PO QDAY [facility] Last Admin: 01/11/21 11:09 Dose: 25 mg Documented by: Results - Results Labs/Vitals: Laboratory Last Values WBC 11.0 K/mm3 (4.5-11.0) 01/07/21 23:06 RBC 3.89 M/mm3 (3.65-5.03) 01/07/21 23:06 Hgb 12.4 gm/dl (10.1-14.3) 01/07/21 23:06 Hct 36.6 % (30.3-42.9) 01/07/21 23:06 MCV 94 fl (79-97) 01/07/21 23:06 MCH 32 pg (28-32) 01/07/21 23:06 MCHC 34 % (30-34) 01/07/21 23:06 RDW 14.3 % (13.2-15.2) 01/07/21 23:06 Plt Count 257 K/mm3 (140-440) 01/07/21 23:06 Lymph % (Auto) 13.7 % (13.4-35.0) 01/07/21 23:06 [place] % (Auto) 9.4 % (0.0-7.3) H 01/07/21 23:06 Eos % (Auto) 1.4 % (0.0-4.3) 01/07/21 23:06 Baso % (Auto) 0.5 % (0.0-1.8) 01/07/21 23:06 Lymph # (Auto) 1.5 K/mm3 (1.2-5.4) 01/07/21 23:06 [place] # (Auto) 1.0 K/mm3 (0.0-0.8) H 01/07/21 23:06 Eos # (Auto) 0.1 K/mm3 (0.0-0.4) 01/07/21 23:06 Baso # (Auto) 0.1 K/mm3 (0.0-0.1) 01/07/21 23:06 Seg Neutrophils % 75.0 % (40.0-70.0) H 01/07/21 23:06 Seg Neutrophils # 8.2 K/mm3 (1.8-7.7) H 01/07/21 23:06 Sodium 141 mmol/L (137-145) 01/07/21 23:06 Potassium 3.7 mmol/L (3.6-5.0) 01/07/21 23:06 Chloride 105.6 mmol/L (98-107) 01/07/21 23:06 Carbon Dioxide 19 mmol/L (22-30) L 01/07/21 23:06 Anion Gap 20 mmol/L 01/07/21 23:06 BUN 18 mg/dL (7-17) H 01/07/21 23:06 Creatinine 0.4 mg/dL (0.6-1.2) L 01/07/21 23:06 Estimated GFR > 60 ml/min 01/07/21 23:06 BUN/Creatinine Ratio 45 % 01/07/21 23:06 Glucose 92 mg/dL (65-100) 01/07/21 23:06 POC Glucose 158 mg/dL (70-105) H 01/07/21 19:47 Calcium 8.9 mg/dL (8.4-10.2) 01/07/21 23:06 Total Bilirubin 0.20 mg/dL (0.1-1.2) 01/07/21 23:06 AST 25 units/L (5-40) 01/07/21 23:06 ALT 26 units/L (7-56) 01/07/21 23:06 Alkaline Phosphatase 92 units/L (35-129) 01/07/21 23:06 Total Protein 6.8 g/dL (6.3-8.2) 01/07/21 23:06 Albumin 3.6 g/dL (3.9-5) L 01/07/21 23:06 Albumin/Globulin Ratio 1.1 % 01/07/21 23:06 Triglycerides 68 mg/dL (2-149) 01/07/21 23:06 Cholesterol 140 mg/dL (50-199) 01/07/21 23:06 LDL Cholesterol Direct 55 mg/dL (50-130) 01/07/21 23:06 HDL Cholesterol 70 mg/dL (40-59) H 01/07/21 23:06 Cholesterol/HDL Ratio 2.00 % 01/07/21 23:06 TSH 1.960 mlU/mL (0.270-4.200) 01/07/21 23:06 Hepatitis A IgM Ab Non-reactive (NonReactive) 01/07/21 23:06 Hep Bs Antigen Nonreactive (Negative) 01/07/21 23:06 Hep B Core IgM Ab Non-reactive (NonReactive) 01/07/21 23:06 Hepatitis C Antibody Non-reactive (NonReactive) 01/07/21 23:06 Last Vital Signs Temp 98.7 F 01/11/21 19:45 Pulse 64 01/11/21 19:45 Resp 16 01/11/21 19:45 BP 127/47 01/11/21 19:45 Pulse Ox 96 01/11/21 19:45
[2021-01-12] MEDS: DONEPEZIL 10 MG TAB PO SCH (09:25)
[2021-01-12] MEDS: busPIRone 5 MG TAB PO SCH ×2 (09:25→21:22)
[2021-01-12] MEDS: methIMAzole 5 MG TAB PO SCH (09:26)
[2021-01-12] MEDS: SERTRALINE 25 MG TAB PO SCH (09:26)
[2021-01-12] MEDS: risperiDONE 0.25 MG TAB PO SCH ×2 (09:26→21:23)
[2021-01-12] MEDS: amLODIPine 5 MG TAB PO SCH (09:26)
[2021-01-12] MEDS: MEMANTINE 10 MG TAB PO SCH ×2 (09:26→21:22)
[2021-01-12] MEDS: NYSTATIN CREAM 15 GM TUBE TP SCH ×2 (09:32→21:23)
--- NOTE | 2021-01-12 10:00 | Event Note ---
Date: 01/12/21 Spoke with the patient's daughter concerning progress and medications. She is wanting the patient in a fci and is concerned about her getting in one by Monday. She says she's called several and waiting to hear back from one that needs a referral from the . She says she's concerned because she was told by the that if psych clears her mother, she is leaving Monday even if she doesn't have a place to go. She says she doesn't want her mother in the streets. I reassured her that her mother would not be discharged into the streets.
[2021-01-12] MEDS: VALPROIC ACID 250 MG/5 ML ORAL LIQD PO SCH (10:46)
--- NOTE | 2021-01-12 13:21 | Progress Note ---
Hospitalist Physical - Constitutional Vitals: Temp Pulse Resp BP Pulse Ox 98.8 F 78 16 123/68 94 01/12/21 07:41 01/12/21 09:26 01/12/21 07:41 01/12/21 07:41 01/12/21 07:41 General appearance: Present: no acute distress, well-nourished, other (Confused at times) Results - Labs CBC & Chem 7: 01/07/21 23:06 01/07/21 23:06 Labs: Laboratory Last Values WBC 11.0 K/mm3 (4.5-11.0) 01/07/21 23:06 RBC 3.89 M/mm3 (3.65-5.03) 01/07/21 23:06 Hgb 12.4 gm/dl (10.1-14.3) 01/07/21 23:06 Hct 36.6 % (30.3-42.9) 01/07/21 23:06 MCV 94 fl (79-97) 01/07/21 23:06 MCH 32 pg (28-32) 01/07/21 23:06 MCHC 34 % (30-34) 01/07/21 23:06 RDW 14.3 % (13.2-15.2) 01/07/21 23:06 Plt Count 257 K/mm3 (140-440) 01/07/21 23:06 Lymph % (Auto) 13.7 % (13.4-35.0) 01/07/21 23:06 [place] % (Auto) 9.4 % (0.0-7.3) H 01/07/21 23:06 Eos % (Auto) 1.4 % (0.0-4.3) 01/07/21 23:06 Baso % (Auto) 0.5 % (0.0-1.8) 01/07/21 23:06 Lymph # (Auto) 1.5 K/mm3 (1.2-5.4) 01/07/21 23:06 [place] # (Auto) 1.0 K/mm3 (0.0-0.8) H 01/07/21 23:06 Eos # (Auto) 0.1 K/mm3 (0.0-0.4) 01/07/21 23:06 Baso # (Auto) 0.1 K/mm3 (0.0-0.1) 01/07/21 23:06 Seg Neutrophils % 75.0 % (40.0-70.0) H 01/07/21 23:06 Seg Neutrophils # 8.2 K/mm3 (1.8-7.7) H 01/07/21 23:06 Sodium 141 mmol/L (137-145) 01/07/21 23:06 Potassium 3.7 mmol/L (3.6-5.0) 01/07/21 23:06 Chloride 105.6 mmol/L (98-107) 01/07/21 23:06 Carbon Dioxide 19 mmol/L (22-30) L 01/07/21 23:06 Anion Gap 20 mmol/L 01/07/21 23:06 BUN 18 mg/dL (7-17) H 01/07/21 23:06 Creatinine 0.4 mg/dL (0.6-1.2) L 01/07/21 23:06 Estimated GFR > 60 ml/min 01/07/21 23:06 BUN/Creatinine Ratio 45 % 01/07/21 23:06 Glucose 92 mg/dL (65-100) 01/07/21 23:06 POC Glucose 158 mg/dL (70-105) H 01/07/21 19:47 Calcium 8.9 mg/dL (8.4-10.2) 01/07/21 23:06 Total Bilirubin 0.20 mg/dL (0.1-1.2) 01/07/21 23:06 AST 25 units/L (5-40) 01/07/21 23:06 ALT 26 units/L (7-56) 01/07/21 23:06 Alkaline Phosphatase 92 units/L (35-129) 01/07/21 23:06 Total Protein 6.8 g/dL (6.3-8.2) 01/07/21 23:06 Albumin 3.6 g/dL (3.9-5) L 01/07/21 23:06 Albumin/Globulin Ratio 1.1 % 01/07/21 23:06 Triglycerides 68 mg/dL (2-149) 01/07/21 23:06 Cholesterol 140 mg/dL (50-199) 01/07/21 23:06 LDL Cholesterol Direct 55 mg/dL (50-130) 01/07/21 23:06 HDL Cholesterol 70 mg/dL (40-59) H 01/07/21 23:06 Cholesterol/HDL Ratio 2.00 % 01/07/21 23:06 TSH 1.960 mlU/mL (0.270-4.200) 01/07/21 23:06 Hepatitis A IgM Ab Non-reactive (NonReactive) 01/07/21 23:06 Hep Bs Antigen Nonreactive (Negative) 01/07/21 23:06 Hep B Core IgM Ab Non-reactive (NonReactive) 01/07/21 23:06 Hepatitis C Antibody Non-reactive (NonReactive) 01/07/21 23:06 Wen/IV: Voiding Method Toilet Active Medications - Current Medications Current Medications: Generic Name Dose Route Start Last Admin Trade Name Freq PRN Reason Stop Dose Admin Amlodipine Besylate 5 mg 01/08/21 12:00 01/12/21 09:26 Amlodipine 5 Mg Tab PO 5 mg DAILY PENNY Administration Atorvastatin Calcium 40 mg 01/08/21 22:00 01/11/21 21:34 Atorvastatin 40 Mg Tab PO 40 mg QHS PENNY Administration Buspirone HCl 5 mg 01/08/21 12:00 01/12/21 09:25 Buspirone 5 Mg Tab PO 5 mg BID PENNY Administration Donepezil HCl 10 mg 01/08/21 12:00 01/12/21 09:25 Donepezil 10 Mg Tab PO 10 mg QDAY PENNY Administration Melatonin 10 mg 01/08/21 22:00 01/11/21 21:34 Melatonin 5 Mg Tab PO 10 mg QHS PENNY Administration Memantine 10 mg 01/08/21 12:00 01/12/21 09:26 Memantine 10 Mg Tab PO 10 mg BID PENNY Administration Methimazole 5 mg 01/08/21 12:00 01/12/21 09:26 Methimazole 5 Mg Tab PO 5 mg QDAY PENNY Administration Nystatin 1 applic 01/08/21 12:00 01/12/21 09:32 Nystatin Cream 15 Gm Tube TP 1 applic BID PENNY Administration Risperidone 0.25 mg 01/10/21 11:00 01/12/21 09:26 Risperidone 0.25 Mg Tab PO 0.25 mg BID PENNY Administration Sertraline HCl 25 mg 01/09/21 10:00 01/12/21 09:26 Sertraline 25 Mg Tab PO 25 mg QDAY PENNY Administration Valproic Acid 125 mg 01/12/21 10:00 01/12/21 10:46 Valproic Acid 250 Mg/5 Ml Oral Liqd PO 125 mg DAILY PENNY Administration
[2021-01-12] MEDS: MELATONIN 5 MG TAB PO SCH (21:22)
[2021-01-13] MEDS: NYSTATIN CREAM 15 GM TUBE TP SCH ×2 (09:46→21:26)
[2021-01-13] MEDS: DONEPEZIL 10 MG TAB PO SCH (09:47)
[2021-01-13] MEDS: risperiDONE 0.25 MG TAB PO SCH ×2 (09:47→21:25)
[2021-01-13] MEDS: methIMAzole 5 MG TAB PO SCH (09:47)
[2021-01-13] MEDS: MEMANTINE 10 MG TAB PO SCH ×2 (09:47→21:25)
[2021-01-13] MEDS: amLODIPine 5 MG TAB PO SCH (09:47)
[2021-01-13] MEDS: SERTRALINE 25 MG TAB PO SCH (09:47)
[2021-01-13] MEDS: VALPROIC ACID 250 MG/5 ML ORAL LIQD PO SCH (09:47)
[2021-01-13] MEDS: busPIRone 5 MG TAB PO SCH ×2 (09:47→21:25)
--- NOTE | 2021-01-13 10:36 | Progress Note ---
Subjective Date of service: 01/13/21 Principal diagnosis: Dementia with Behavioral Disturbance Subjective Comment: The patient was seen today. She is calm and pleasant. She is confused, but presents more organized today. She says she slept good and feels fine. The patient will need to be placed because she can not be managed at home. The family is wanting the patient in a NH. REVIEW OF SYSTEMS Unable to assess MENTAL STATUS EXAMINATION General Appearance and Behavior: Age appropriate, good hygiene, wearing appropriate clothes. Cooperation: Cooperative, calm Psychomotor Behavior: Psychomotor normal Mood: okay Affect and affective range: congruent with stated mood Thought Process: Impaired Thought Content: Speech: Nonsensical, rambling Suicidal Ideation: Denies Homicidal Ideation: Denies Hallucinations: Delusions: None Impulse Control: Questionable Insight and Judgment: Limited insight, fair judgment Memory: Impaired Attention: Distractible Orientation: Confused Assessment and Plan (1) Dementia with Behavioral Disturbance Treatment Plan Patient admitted for inpatient psychiatric evaluation, medication adjustment and close monitoring The patient's behavior, mood, sleep and appetite will be closely monitored. Patient enrolled in individual and group therapeutic sessions and encouraged to attend. Patient provided with a safe and structured environment. Patient's physical health needs will be addressed by the Hospitalist. Hospitalist Consulted Labs including CBC, CMP, Lipid profile and Hemoglobin A1C levels ordered for b aseline reference Social Assessment will be completed and the Electrolysis Operator will work with patient and family to ensure a suitable and safe disposition Medication adjustment will be made as clinically indicated Continue Risperidone 0.25mg po BID Continue Valproic 125mg po daily Usual Wellness Restorationist/Preservation: - Start Trazodone 50 mg po QHS & 50 mg po QHS PRN between 10 PM & 2 AM for insomnia - Start Melatonin 5 mg po QHS to promote circadian rhythm The patient agreed on the treatment plan, understood the risk, benefit, alternative treatment, potential consequence of no treatment, and gave informed consent. Estimated days: 5 Post hospital care: primary care provider, psychiatric provider Case staffed with Dr. Pendleton Medications and Allergies Allergies Allergy/AdvReac Type Severity Reaction Status Date / Time hydromorphone [From Dilaudid] Allergy Unknown Verified 01/07/21 14:25 peanut Allergy Unknown Verified 01/07/21 14:25 Home Medications Medication Instructions Recorded Confirmed Last Taken Type Amlodipine Besylate [Norvasc] 5 mg PO DAILY 01/07/21 01/07/21 Unknown History Melatonin [Melatonin 10MG TAB] 10 mg PO HS 01/07/21 01/07/21 Unknown History Memantine [Namenda] 10 mg PO BID 01/07/21 01/07/21 Unknown History Nystatin Cream [Mycostatin Cream] 1 applic TP BID 01/07/21 01/07/21 Unknown History Rosuvastatin Calcium [Crestor] 20 mg PO QHS 01/07/21 01/07/21 Unknown History Vitamin E 400 unit PO DAILY 01/07/21 01/07/21 Unknown History busPIRone [Buspar] 5 mg PO BID 01/07/21 01/07/21 Unknown History donepeziL [Aricept] 10 mg PO QDAY 01/07/21 01/07/21 Unknown History methIMAzole [Tapazole] 5 mg PO QDAY 01/07/21 01/07/21 Unknown History Active Meds: Active Medications Amlodipine Besylate (Amlodipine 5 Mg Tab) 5 mg PO DAILY [facility] Last Admin: 01/13/21 09:47 Dose: 5 mg Documented by: Atorvastatin Calcium (Atorvastatin 40 Mg Tab) 40 mg PO QHS [facility] Last Admin: 01/12/21 21:22 Dose: 40 mg Documented by: Buspirone HCl (Buspirone 5 Mg Tab) 5 mg PO BID [facility] Last Admin: 01/13/21 09:47 Dose: 5 mg Documented by: Donepezil HCl (Donepezil 10 Mg Tab) 10 mg PO QDAY [facility] Last Admin: 01/13/21 09:47 Dose: 10 mg Documented by: Melatonin (Melatonin 5 Mg Tab) 10 mg PO QHS [facility] Last Admin: 01/12/21 21:22 Dose: 10 mg Documented by: Memantine (Memantine 10 Mg Tab) 10 mg PO BID [facility] Last Admin: 01/13/21 09:47 Dose: 10 mg Documented by: Methimazole (Methimazole 5 Mg Tab) 5 mg PO QDAY [facility] Last Admin: 01/13/21 09:47 Dose: 5 mg Documented by: Nystatin (Nystatin Cream 15 Gm Tube) 1 applic TP BID [facility] Last Admin: 01/13/21 09:46 Dose: 1 applic Documented by: Risperidone (Risperidone 0.25 Mg Tab) 0.25 mg PO BID [facility] Last Admin: 01/13/21 09:47 Dose: 0.25 mg Documented by: Sertraline HCl (Sertraline 25 Mg Tab) 25 mg PO QDAY [facility] Last Admin: 01/13/21 09:47 Dose: 25 mg Documented by: Valproic Acid (Valproic Acid 250 Mg/5 Ml Oral Liqd) 125 mg PO DAILY [facility] Last Admin: 01/13/21 09:47 Dose: 125 mg Documented by: Results - Results Labs/Vitals: Laboratory Last Values WBC 11.0 K/mm3 (4.5-11.0) 01/07/21 23:06 RBC 3.89 M/mm3 (3.65-5.03) 01/07/21 23:06 Hgb 12.4 gm/dl (10.1-14.3) 01/07/21 23:06 Hct 36.6 % (30.3-42.9) 01/07/21 23:06 MCV 94 fl (79-97) 01/07/21 23:06 MCH 32 pg (28-32) 01/07/21 23:06 MCHC 34 % (30-34) 01/07/21 23:06 RDW 14.3 % (13.2-15.2) 01/07/21 23:06 Plt Count 257 K/mm3 (140-440) 01/07/21 23:06 Lymph % (Auto) 13.7 % (13.4-35.0) 01/07/21 23:06 [place] % (Auto) 9.4 % (0.0-7.3) H 01/07/21 23:06 Eos % (Auto) 1.4 % (0.0-4.3) 01/07/21 23:06 Baso % (Auto) 0.5 % (0.0-1.8) 01/07/21 23:06 Lymph # (Auto) 1.5 K/mm3 (1.2-5.4) 01/07/21 23:06 [place] # (Auto) 1.0 K/mm3 (0.0-0.8) H 01/07/21 23:06 Eos # (Auto) 0.1 K/mm3 (0.0-0.4) 01/07/21 23:06 Baso # (Auto) 0.1 K/mm3 (0.0-0.1) 01/07/21 23:06 Seg Neutrophils % 75.0 % (40.0-70.0) H 01/07/21 23:06 Seg Neutrophils # 8.2 K/mm3 (1.8-7.7) H 01/07/21 23:06 Sodium 141 mmol/L (137-145) 01/07/21 23:06 Potassium 3.7 mmol/L (3.6-5.0) 01/07/21 23:06 Chloride 105.6 mmol/L (98-107) 01/07/21 23:06 Carbon Dioxide 19 mmol/L (22-30) L 01/07/21 23:06 Anion Gap 20 mmol/L 01/07/21 23:06 BUN 18 mg/dL (7-17) H 01/07/21 23:06 Creatinine 0.4 mg/dL (0.6-1.2) L 01/07/21 23:06 Estimated GFR > 60 ml/min 01/07/21 23:06 BUN/Creatinine Ratio 45 % 01/07/21 23:06 Glucose 92 mg/dL (65-100) 01/07/21 23:06 POC Glucose 158 mg/dL (70-105) H 01/07/21 19:47 Calcium 8.9 mg/dL (8.4-10.2) 01/07/21 23:06 Total Bilirubin 0.20 mg/dL (0.1-1.2) 01/07/21 23:06 AST 25 units/L (5-40) 01/07/21 23:06 ALT 26 units/L (7-56) 01/07/21 23:06 Alkaline Phosphatase 92 units/L (35-129) 01/07/21 23:06 Total Protein 6.8 g/dL (6.3-8.2) 01/07/21 23:06 Albumin 3.6 g/dL (3.9-5) L 01/07/21 23:06 Albumin/Globulin Ratio 1.1 % 01/07/21 23:06 Triglycerides 68 mg/dL (2-149) 01/07/21 23:06 Cholesterol 140 mg/dL (50-199) 01/07/21 23:06 LDL Cholesterol Direct 55 mg/dL (50-130) 01/07/21 23:06 HDL Cholesterol 70 mg/dL (40-59) H 01/07/21 23:06 Cholesterol/HDL Ratio 2.00 % 01/07/21 23:06 TSH 1.960 mlU/mL (0.270-4.200) 01/07/21 23:06 Hepatitis A IgM Ab Non-reactive (NonReactive) 01/07/21 23:06 Hep Bs Antigen Nonreactive (Negative) 01/07/21 23:06 Hep B Core IgM Ab Non-reactive (NonReactive) 01/07/21 23:06 Hepatitis C Antibody Non-reactive (NonReactive) 01/07/21 23:06 Last Vital Signs Temp 98.2 F 01/13/21 06:03 Pulse 67 01/13/21 09:47 Resp 18 01/13/21 06:03 BP 107/62 01/13/21 09:44 Pulse Ox 94 01/13/21 09:44
[2021-01-13] MEDS: MELATONIN 5 MG TAB PO SCH (21:25)
--- NOTE | 2021-01-14 09:25 | Progress Note ---
Subjective Date of service: 01/14/21 Principal diagnosis: Dementia with Behavioral Disturbance Subjective Comment: The patient was seen today. She is calm and pleasant. She is confused. She is sitting quietly in the dayroom. She says "fine" when I ask her how she feels. The patient then starts rambling about her daughter. I mention that I spoke to her daughter. She says "Lillie." Reason for continued inpatient treatment: The appears to be improving. However, she is awaiting placement. REVIEW OF SYSTEMS Unable to assess MENTAL STATUS EXAMINATION General Appearance and Behavior: Age appropriate, good hygiene, wearing appropriate clothes. Cooperation: Cooperative, calm Psychomotor Behavior: Psychomotor normal Mood: okay Affect and affective range: congruent with stated mood Thought Process: Impaired Thought Content: Speech: Nonsensical, rambling Suicidal Ideation: Denies Homicidal Ideation: Denies Hallucinations: Delusions: None Impulse Control: Questionable Insight and Judgment: Limited insight, fair judgment Memory: Impaired Attention: Distractible Orientation: Confused Assessment and Plan (1) Dementia with Behavioral Disturbance Treatment Plan Patient admitted for inpatient psychiatric evaluation, medication adjustment and close monitoring The patient's behavior, mood, sleep and appetite will be closely monitored. Patient enrolled in individual and group therapeutic sessions and encouraged to attend. Patient provided with a safe and structured environment. Patient's physical health needs will be addressed by the Hospitalist. Hospitalist Consulted Labs including CBC, CMP, Lipid profile and Hemoglobin A1C levels ordered for baseline reference Social Assessment will be completed and the Radio News Anchor will work with patient and family to ensure a suitable and safe disposition Medication adjustment will be made as clinically indicated Continue Risperidone 0.25mg po BID Continue Valproic 125mg po daily Usual Wellness Bahai/Preservation: - Start Trazodone 50 mg po QHS & 50 mg po QHS PRN between 10 PM & 2 AM for insomnia - Start Melatonin 5 mg po QHS to promote circadian rhythm The patient agreed on the treatment plan, understood the risk, benefit, alternative treatment, potential consequence of no treatment, and gave informed consent. Estimated days: 5 Post hospital care: primary care provider, psychiatric provider Case staffed with Dr. Pendleton Medications and Allergies Allergies Allergy/AdvReac Type Severity Reaction Status Date / Time hydromorphone [From Dilaudid] Allergy Unknown Verified 01/07/21 14:25 peanut Allergy Unknown Verified 01/07/21 14:25 Home Medications Medication Instructions Recorded Confirmed Last Taken Type Amlodipine Besylate [Norvasc] 5 mg PO DAILY 01/07/21 01/07/21 Unknown History Melatonin [Melatonin 10MG TAB] 10 mg PO HS 01/07/21 01/07/21 Unknown History Memantine [Namenda] 10 mg PO BID 01/07/21 01/07/21 Unknown History Nystatin Cream [Mycostatin Cream] 1 applic TP BID 01/07/21 01/07/21 Unknown History Rosuvastatin Calcium [Crestor] 20 mg PO QHS 01/07/21 01/07/21 Unknown History Vitamin E 400 unit PO DAILY 01/07/21 01/07/21 Unknown History busPIRone [Buspar] 5 mg PO BID 01/07/21 01/07/21 Unknown History donepeziL [Aricept] 10 mg PO QDAY 01/07/21 01/07/21 Unknown History methIMAzole [Tapazole] 5 mg PO QDAY 01/07/21 01/07/21 Unknown History Active Meds: Active Medications Amlodipine Besylate (Amlodipine 5 Mg Tab) 5 mg PO DAILY [facility] Last Admin: 01/13/21 09:47 Dose: 5 mg Documented by: Atorvastatin Calcium (Atorvastatin 40 Mg Tab) 40 mg PO QHS [facility] Last Admin: 01/13/21 21:25 Dose: 40 mg Documented by: Buspirone HCl (Buspirone 5 Mg Tab) 5 mg PO BID [facility] Last Admin: 01/13/21 21:25 Dose: 5 mg Documented by: Donepezil HCl (Donepezil 10 Mg Tab) 10 mg PO QDAY [facility] Last Admin: 01/13/21 09:47 Dose: 10 mg Documented by: Melatonin (Melatonin 5 Mg Tab) 10 mg PO QHS [facility] Last Admin: 01/13/21 21:25 Dose: 10 mg Documented by: Memantine (Memantine 10 Mg Tab) 10 mg PO BID [facility] Last Admin: 01/13/21 21:25 Dose: 10 mg Documented by: Methimazole (Methimazole 5 Mg Tab) 5 mg PO QDAY [facility] Last Admin: 01/13/21 09:47 Dose: 5 mg Documented by: Nystatin (Nystatin Cream 15 Gm Tube) 1 applic TP BID [facility] Last Admin: 01/13/21 21:26 Dose: 1 applic Documented by: Risperidone (Risperidone 0.25 Mg Tab) 0.25 mg PO BID [facility] Last Admin: 01/13/21 21:25 Dose: 0.25 mg Documented by: Sertraline HCl (Sertraline 25 Mg Tab) 25 mg PO QDAY [facility] Last Admin: 01/13/21 09:47 Dose: 25 mg Documented by: Valproic Acid (Valproic Acid 250 Mg/5 Ml Oral Liqd) 125 mg PO DAILY [facility] Last Admin: 01/13/21 09:47 Dose: 125 mg Documented by: Results - Results Labs/Vitals: Laboratory Last Values WBC 11.0 K/mm3 (4.5-11.0) 01/07/21 23:06 RBC 3.89 M/mm3 (3.65-5.03) 01/07/21 23:06 Hgb 12.4 gm/dl (10.1-14.3) 01/07/21 23:06 Hct 36.6 % (30.3-42.9) 01/07/21 23:06 MCV 94 fl (79-97) 01/07/21 23:06 MCH 32 pg (28-32) 01/07/21 23:06 MCHC 34 % (30-34) 01/07/21 23:06 RDW 14.3 % (13.2-15.2) 01/07/21 23:06 Plt Count 257 K/mm3 (140-440) 01/07/21 23:06 Lymph % (Auto) 13.7 % (13.4-35.0) 01/07/21 23:06 [place] % (Auto) 9.4 % (0.0-7.3) H 01/07/21 23:06 Eos % (Auto) 1.4 % (0.0-4.3) 01/07/21 23:06 Baso % (Auto) 0.5 % (0.0-1.8) 01/07/21 23:06 Lymph # (Auto) 1.5 K/mm3 (1.2-5.4) 01/07/21 23:06 [place] # (Auto) 1.0 K/mm3 (0.0-0.8) H 01/07/21 23:06 Eos # (Auto) 0.1 K/mm3 (0.0-0.4) 01/07/21 23:06 Baso # (Auto) 0.1 K/mm3 (0.0-0.1) 01/07/21 23:06 Seg Neutrophils % 75.0 % (40.0-70.0) H 01/07/21 23:06 Seg Neutrophils # 8.2 K/mm3 (1.8-7.7) H 01/07/21 23:06 Sodium 141 mmol/L (137-145) 01/07/21 23:06 Potassium 3.7 mmol/L (3.6-5.0) 01/07/21 23:06 Chloride 105.6 mmol/L (98-107) 01/07/21 23:06 Carbon Dioxide 19 mmol/L (22-30) L 01/07/21 23:06 Anion Gap 20 mmol/L 01/07/21 23:06 BUN 18 mg/dL (7-17) H 01/07/21 23:06 Creatinine 0.4 mg/dL (0.6-1.2) L 01/07/21 23:06 Estimated GFR > 60 ml/min 01/07/21 23:06 BUN/Creatinine Ratio 45 % 01/07/21 23:06 Glucose 92 mg/dL (65-100) 01/07/21 23:06 POC Glucose 158 mg/dL (70-105) H 01/07/21 19:47 Calcium 8.9 mg/dL (8.4-10.2) 01/07/21 23:06 Total Bilirubin 0.20 mg/dL (0.1-1.2) 01/07/21 23:06 AST 25 units/L (5-40) 01/07/21 23:06 ALT 26 units/L (7-56) 01/07/21 23:06 Alkaline Phosphatase 92 units/L (35-129) 01/07/21 23:06 Total Protein 6.8 g/dL (6.3-8.2) 01/07/21 23:06 Albumin 3.6 g/dL (3.9-5) L 01/07/21 23:06 Albumin/Globulin Ratio 1.1 % 01/07/21 23:06 Triglycerides 68 mg/dL (2-149) 01/07/21 23:06 Cholesterol 140 mg/dL (50-199) 01/07/21 23:06 LDL Cholesterol Direct 55 mg/dL (50-130) 01/07/21 23:06 HDL Cholesterol 70 mg/dL (40-59) H 01/07/21 23:06 Cholesterol/HDL Ratio 2.00 % 01/07/21 23:06 TSH 1.960 mlU/mL (0.270-4.200) 01/07/21 23:06 Hepatitis A IgM Ab Non-reactive (NonReactive) 01/07/21 23:06 Hep Bs Antigen Nonreactive (Negative) 01/07/21 23:06 Hep B Core IgM Ab Non-reactive (NonReactive) 01/07/21 23:06 Hepatitis C Antibody Non-reactive (NonReactive) 01/07/21 23:06 Last Vital Signs Temp 98.6 F 01/13/21 19:39 Pulse 73 01/13/21 19:39 Resp 20 01/13/21 19:39 BP 145/59 01/13/21 19:39 Pulse Ox 96 01/13/21 19:39
[2021-01-14] MEDS: busPIRone 5 MG TAB PO SCH ×2 (09:29→21:11)
[2021-01-14] MEDS: methIMAzole 5 MG TAB PO SCH (09:29)
[2021-01-14] MEDS: NYSTATIN CREAM 15 GM TUBE TP SCH ×2 (09:29→21:09)
[2021-01-14] MEDS: risperiDONE 0.25 MG TAB PO SCH ×2 (09:29→21:10)
[2021-01-14] MEDS: DONEPEZIL 10 MG TAB PO SCH (09:30)
[2021-01-14] MEDS: VALPROIC ACID 250 MG/5 ML ORAL LIQD PO SCH (09:30)
[2021-01-14] MEDS: SERTRALINE 25 MG TAB PO SCH (09:30)
[2021-01-14] MEDS: amLODIPine 5 MG TAB PO SCH (09:30)
[2021-01-14] MEDS: MEMANTINE 10 MG TAB PO SCH ×2 (09:30→21:11)
[2021-01-14] MEDS: MELATONIN 5 MG TAB PO SCH (21:10)
[2021-01-15] MEDS: risperiDONE 0.25 MG TAB PO SCH ×2 (11:40→21:08)
[2021-01-15] MEDS: busPIRone 5 MG TAB PO SCH ×2 (11:40→21:08)
[2021-01-15] MEDS: methIMAzole 5 MG TAB PO SCH (11:40)
[2021-01-15] MEDS: DONEPEZIL 10 MG TAB PO SCH (11:40)
[2021-01-15] MEDS: MEMANTINE 10 MG TAB PO SCH ×2 (11:40→21:08)
[2021-01-15] MEDS: VALPROIC ACID 250 MG/5 ML ORAL LIQD PO SCH (11:40)
[2021-01-15] MEDS: NYSTATIN CREAM 15 GM TUBE TP SCH ×2 (11:41→21:08)
[2021-01-15] MEDS: SERTRALINE 25 MG TAB PO SCH (11:41)
[2021-01-15] MEDS: amLODIPine 5 MG TAB PO SCH (11:42)
--- NOTE | 2021-01-15 13:32 | Progress Note ---
Subjective Date of service: 01/15/21 Principal diagnosis: Dementia with Behavioral Disturbance Subjective Comment: The patient was seen eating breakfast. The patient continues to present with some confusion. The patient was conversational and pleasant. The patient states mood as " I'm alright." Reason for continued inpatient treatment: The appears to be improving. However, she is awaiting placement. REVIEW OF SYSTEMS Unable to assess MENTAL STATUS EXAMINATION General Appearance and Behavior: Age appropriate, good hygiene, wearing appropriate clothes. Cooperation: Cooperative, calm Psychomotor Behavior: Psychomotor normal Mood: " I'm alright" Affect and affective range: congruent with stated mood Thought Process: confused Thought Content: Not suicidal Speech: Normal Suicidal Ideation: Denies Homicidal Ideation: Denies Hallucinations: Denies Delusions: None Impulse Control: Questionable Insight and Judgment: Limited insight, fair judgment Memory: Impaired Attention: Distractible Orientation: Confused Assessment and Plan (1) Dementia with Behavioral Disturbance Treatment Plan Patient admitted for inpatient psychiatric evaluation, medication adjustment and close monitoring The patient's behavior, mood, sleep and appetite will be closely monitored. Patient enrolled in individual and group therapeutic sessions and encouraged to attend. Patient provided with a safe and structured environment. Patient's physical health needs will be addressed by the Hospitalist. Hospitalist Consulted Labs including CBC, CMP, Lipid profile and Hemoglobin A1C levels ordered for baseline reference Social Assessment will be completed and the Motivational Speaker will work with patient and family to ensure a suitable and safe disposition Medication adjustment will be made as clinically indicated No changes made today Continue Risperidone 0.25mg po BID Continue Valproic 125mg po daily Usual Wellness Protestant/Preservation: - Start Trazodone 50 mg po QHS & 50 mg po QHS PRN between 10 PM & 2 AM for insomnia - Start Melatonin 5 mg po QHS to promote circadian rhythm The patient agreed on the treatment plan, understood the risk, benefit, alternative treatment, potential consequence of no treatment, and gave informed consent. Estimated days: 5 Post hospital care: primary care provider, psychiatric provider Case staffed with Dr. Pendleton Medications and Allergies Allergies Allergy/AdvReac Type Severity Reaction Status Date / Time hydromorphone [From Dilaudid] Allergy Unknown Verified 01/07/21 14:25 peanut Allergy Unknown Verified 01/07/21 14:25 Home Medications Medication Instructions Recorded Confirmed Last Taken Type Amlodipine Besylate [Norvasc] 5 mg PO DAILY 01/07/21 01/07/21 Unknown History Melatonin [Melatonin 10MG TAB] 10 mg PO HS 01/07/21 01/07/21 Unknown History Memantine [Namenda] 10 mg PO BID 01/07/21 01/07/21 Unknown History Nystatin Cream [Mycostatin Cream] 1 applic TP BID 01/07/21 01/07/21 Unknown History Rosuvastatin Calcium [Crestor] 20 mg PO QHS 01/07/21 01/07/21 Unknown History Vitamin E 400 unit PO DAILY 01/07/21 01/07/21 Unknown History busPIRone [Buspar] 5 mg PO BID 01/07/21 01/07/21 Unknown History donepeziL [Aricept] 10 mg PO QDAY 01/07/21 01/07/21 Unknown History methIMAzole [Tapazole] 5 mg PO QDAY 01/07/21 01/07/21 Unknown History Active Meds: Active Medications Amlodipine Besylate (Amlodipine 5 Mg Tab) 5 mg PO DAILY [facility] Last Admin: 01/15/21 11:42 Dose: 5 mg Documented by: Atorvastatin Calcium (Atorvastatin 40 Mg Tab) 40 mg PO QHS [facility] Last Admin: 01/14/21 21:11 Dose: 40 mg Documented by: Buspirone HCl (Buspirone 5 Mg Tab) 5 mg PO BID [facility] Last Admin: 01/15/21 11:40 Dose: 5 mg Documented by: Donepezil HCl (Donepezil 10 Mg Tab) 10 mg PO QDAY [facility] Last Admin: 01/15/21 11:40 Dose: 10 mg Documented by: Melatonin (Melatonin 5 Mg Tab) 10 mg PO QHS [facility] Last Admin: 01/14/21 21:10 Dose: 10 mg Documented by: Memantine (Memantine 10 Mg Tab) 10 mg PO BID [facility] Last Admin: 01/15/21 11:40 Dose: 10 mg Documented by: Methimazole (Methimazole 5 Mg Tab) 5 mg PO QDAY [facility] Last Admin: 01/14/21 09:29 Dose: 5 mg Documented by: Nystatin (Nystatin Cream 15 Gm Tube) 1 applic TP BID [facility] Last Admin: 01/15/21 11:41 Dose: 1 applic Documented by: Risperidone (Risperidone 0.25 Mg Tab) 0.25 mg PO BID [facility] Last Admin: 01/15/21 11:40 Dose: 0.25 mg Documented by: Sertraline HCl (Sertraline 25 Mg Tab) 25 mg PO QDAY [facility] Last Admin: 01/15/21 11:41 Dose: 25 mg Documented by: Valproic Acid (Valproic Acid 250 Mg/5 Ml Oral Liqd) 125 mg PO DAILY [facility] Last Admin: 01/15/21 11:40 Dose: 125 mg Documented by: Results - Results Labs/Vitals: Laboratory Last Values WBC 11.0 K/mm3 (4.5-11.0) 01/07/21 23:06 RBC 3.89 M/mm3 (3.65-5.03) 01/07/21 23:06 Hgb 12.4 gm/dl (10.1-14.3) 01/07/21 23:06 Hct 36.6 % (30.3-42.9) 01/07/21 23:06 MCV 94 fl (79-97) 01/07/21 23:06 MCH 32 pg (28-32) 01/07/21 23:06 MCHC 34 % (30-34) 01/07/21 23:06 RDW 14.3 % (13.2-15.2) 01/07/21 23:06 Plt Count 257 K/mm3 (140-440) 01/07/21 23:06 Lymph % (Auto) 13.7 % (13.4-35.0) 01/07/21 23:06 [place] % (Auto) 9.4 % (0.0-7.3) H 01/07/21 23:06 Eos % (Auto) 1.4 % (0.0-4.3) 01/07/21 23:06 Baso % (Auto) 0.5 % (0.0-1.8) 01/07/21 23:06 Lymph # (Auto) 1.5 K/mm3 (1.2-5.4) 01/07/21 23:06 [place] # (Auto) 1.0 K/mm3 (0.0-0.8) H 01/07/21 23:06 Eos # (Auto) 0.1 K/mm3 (0.0-0.4) 01/07/21 23:06 Baso # (Auto) 0.1 K/mm3 (0.0-0.1) 01/07/21 23:06 Seg Neutrophils % 75.0 % (40.0-70.0) H 01/07/21 23:06 Seg Neutrophils # 8.2 K/mm3 (1.8-7.7) H 01/07/21 23:06 Sodium 141 mmol/L (137-145) 01/07/21 23:06 Potassium 3.7 mmol/L (3.6-5.0) 01/07/21 23:06 Chloride 105.6 mmol/L (98-107) 01/07/21 23:06 Carbon Dioxide 19 mmol/L (22-30) L 01/07/21 23:06 Anion Gap 20 mmol/L 01/07/21 23:06 BUN 18 mg/dL (7-17) H 01/07/21 23:06 Creatinine 0.4 mg/dL (0.6-1.2) L 01/07/21 23:06 Estimated GFR > 60 ml/min 01/07/21 23:06 BUN/Creatinine Ratio 45 % 01/07/21 23:06 Glucose 92 mg/dL (65-100) 01/07/21 23:06 POC Glucose 158 mg/dL (70-105) H 01/07/21 19:47 Calcium 8.9 mg/dL (8.4-10.2) 01/07/21 23:06 Total Bilirubin 0.20 mg/dL (0.1-1.2) 01/07/21 23:06 AST 25 units/L (5-40) 01/07/21 23:06 ALT 26 units/L (7-56) 01/07/21 23:06 Alkaline Phosphatase 92 units/L (35-129) 01/07/21 23:06 Total Protein 6.8 g/dL (6.3-8.2) 01/07/21 23:06 Albumin 3.6 g/dL (3.9-5) L 01/07/21 23:06 Albumin/Globulin Ratio 1.1 % 01/07/21 23:06 Triglycerides 68 mg/dL (2-149) 01/07/21 23:06 Cholesterol 140 mg/dL (50-199) 01/07/21 23:06 LDL Cholesterol Direct 55 mg/dL (50-130) 01/07/21 23:06 HDL Cholesterol 70 mg/dL (40-59) H 01/07/21 23:06 Cholesterol/HDL Ratio 2.00 % 01/07/21 23:06 TSH 1.960 mlU/mL (0.270-4.200) 01/07/21 23:06 Hepatitis A IgM Ab Non-reactive (NonReactive) 01/07/21 23:06 Hep Bs Antigen Nonreactive (Negative) 01/07/21 23:06 Hep B Core IgM Ab Non-reactive (NonReactive) 01/07/21 23:06 Hepatitis C Antibody Non-reactive (NonReactive) 01/07/21 23:06 Last Vital Signs Temp 98.9 F 01/15/21 07:44 Pulse 71 01/15/21 11:42 Resp 16 01/15/21 07:44 BP 118/57 01/15/21 11:42 Pulse Ox 92 01/15/21 07:44
--- NOTE | 2021-01-15 21:04 | XRay Report ---
CHEST 1 VIEW 01/15/2021 8:39 PM INDICATION / CLINICAL INFORMATION: r/o TB. COMPARISON: None available. FINDINGS: SUPPORT DEVICES: None. HEART / MEDIASTINUM: No significant abnormality. LUNGS / PLEURA: No focal consolidation or cavitary lesion noted throughout the lungs. There is increa sed interstitial markings within the bilateral lower lobes suggesting chronic interstitial lung disea se. No pneumothorax. ADDITIONAL FINDINGS: No significant additional findings. IMPRESSION: 1. No acute pulmonary process, specifically no sequela of tuberculosis. 2. Increased interstitial markings suggesting chronic interstitial lung disease. Signer Name: Danis Zaldivar DO Signed: 01/15/2021 9:00 PM Workstation Name: [id number]
[2021-01-15] MEDS: MELATONIN 5 MG TAB PO SCH (21:08)
--- NOTE | 2021-01-16 08:51 | Progress Note ---
Subjective Date of service: 01/16/21 Principal diagnosis: Dementia with Behavioral Disturbance Subjective Comment: 01/15/2021: The patient was seen eating breakfast. The patient continues to present with some confusion. The patient was conversational and pleasant. The p atient states mood as " I'm alright." 01/16/2021: The was seen in the activity room. The patient continues to be confused. She states she is doing well and mood as good. No changes made today. Reason for continued inpatient treatment: The appears to be improving. However, she is awaiting placement. REVIEW OF SYSTEMS Unable to assess MENTAL STATUS EXAMINATION General Appearance and Behavior: Age appropriate, good hygiene, wearing appropriate clothes. Cooperation: Cooperative, calm Psychomotor Behavior: Psychomotor normal Mood: " good" Affect and affective range: congruent with stated mood Thought Process: confused Thought Content: Not suicidal Speech: Normal Suicidal Ideation: Denies Homicidal Ideation: Denies Hallucinations: Denies Delusions: None Impulse Control: Questionable Insight and Judgment: Limited insight, fair judgment Memory: Impaired Attention: Distractible Orientation: Confused Assessment and Plan (1) Dementia with Behavioral Disturbance Treatment Plan Patient admitted for inpatient psychiatric evaluation, medication adjustment and close monitoring The patient's behavior, mood, sleep and appetite will be closely monitored. Patient enrolled in individual and group therapeutic sessions and encouraged to attend. Patient provided with a safe and structured environment. Patient's physical health needs will be addressed by the Hospitalist. Hospitalist Consulted Labs including CBC, CMP, Lipid profile and Hemoglobin A1C levels ordered for baseline reference Social Assessment will be completed and the Dynamite Packing Machine Feeder will work with patient and family to ensure a suitable and safe disposition Medication adjustment will be made as clinically indicated No changes made today Continue Risperidone 0.25mg po BID Continue Valproic 125mg po daily Usual Wellness Tenriism/Preservation: - Start Trazodone 50 mg po QHS & 50 mg po QHS PRN between 10 PM & 2 AM for insomnia - Start Melatonin 5 mg po QHS to promote circadian rhythm The patient agreed on the treatment plan, understood the risk, benefit, alternative treatment, potential consequence of no treatment, and gave informed consent. Estimated days: Post hospital care: primary care provider, psychiatric provider Case staffed with Dr. Pendleton Medications and Allergies Medications and Allergies Allergies Allergy/AdvReac Type Severity Reaction Status Date / Time hydromorphone [From Dilaudid] Allergy Unknown Verified 01/07/21 14:25 peanut Allergy Unknown Verified 01/07/21 14:25 Home Medications Medication Instructions Recorded Confirmed Last Taken Type Amlodipine Besylate [Norvasc] 5 mg PO DAILY 01/07/21 01/07/21 Unknown History Melatonin [Melatonin 10MG TAB] 10 mg PO HS 01/07/21 01/07/21 Unknown History Memantine [Namenda] 10 mg PO BID 01/07/21 01/07/21 Unknown History Nystatin Cream [Mycostatin Cream] 1 applic TP BID 01/07/21 01/07/21 Unknown History Rosuvastatin Calcium [Crestor] 20 mg PO QHS 01/07/21 01/07/21 Unknown History Vitamin E 400 unit PO DAILY 01/07/21 01/07/21 Unknown History busPIRone [Buspar] 5 mg PO BID 01/07/21 01/07/21 Unknown History donepeziL [Aricept] 10 mg PO QDAY 01/07/21 01/07/21 Unknown History methIMAzole [Tapazole] 5 mg PO QDAY 01/07/21 01/07/21 Unknown History Active Meds: Active Medications Amlodipine Besylate (Amlodipine 5 Mg Tab) 5 mg PO DAILY [facility] Last Admin: 01/15/21 11:42 Dose: 5 mg Documented by: Atorvastatin Calcium (Atorvastatin 40 Mg Tab) 40 mg PO QHS [facility] Last Admin: 01/15/21 21:08 Dose: 40 mg Documented by: Buspirone HCl (Buspirone 5 Mg Tab) 5 mg PO BID [facility] Last Admin: 01/15/21 21:08 Dose: 5 mg Documented by: Donepezil HCl (Donepezil 10 Mg Tab) 10 mg PO QDAY [facility] Last Admin: 01/15/21 11:40 Dose: 10 mg Documented by: Melatonin (Melatonin 5 Mg Tab) 10 mg PO QHS [facility] Last Admin: 01/15/21 21:08 Dose: 10 mg Documented by: Memantine (Memantine 10 Mg Tab) 10 mg PO BID [facility] Last Admin: 01/15/21 21:08 Dose: 10 mg Documented by: Methimazole (Methimazole 5 Mg Tab) 5 mg PO QDAY [facility] Last Admin: 01/15/21 11:40 Dose: 5 mg Documented by: Nystatin (Nystatin Cream 15 Gm Tube) 1 applic TP BID [facility] Last Admin: 01/15/21 21:08 Dose: 1 applic Documented by: Risperidone (Risperidone 0.25 Mg Tab) 0.25 mg PO BID [facility] Last Admin: 01/15/21 21:08 Dose: 0.25 mg Documented by: Sertraline HCl (Sertraline 25 Mg Tab) 25 mg PO QDAY [facility] Last Admin: 01/15/21 11:41 Dose: 25 mg Documented by: Valproic Acid (Valproic Acid 250 Mg/5 Ml Oral Liqd) 125 mg PO DAILY [facility] Last Admin: 01/15/21 11:40 Dose: 125 mg Documented by: Results - Results Labs/Vitals: Laboratory Last Values WBC 11.0 K/mm3 (4.5-11.0) 01/07/21 23:06 RBC 3.89 M/mm3 (3.65-5.03) 01/07/21 23:06 Hgb 12.4 gm/dl (10.1-14.3) 01/07/21 23:06 Hct 36.6 % (30.3-42.9) 01/07/21 23:06 MCV 94 fl (79-97) 01/07/21 23:06 MCH 32 pg (28-32) 01/07/21 23:06 MCHC 34 % (30-34) 01/07/21 23:06 RDW 14.3 % (13.2-15.2) 01/07/21 23:06 Plt Count 257 K/mm3 (140-440) 01/07/21 23:06 Lymph % (Auto) 13.7 % (13.4-35.0) 01/07/21 23:06 [place] % (Auto) 9.4 % (0.0-7.3) H 01/07/21 23:06 Eos % (Auto) 1.4 % (0.0-4.3) 01/07/21 23:06 Baso % (Auto) 0.5 % (0.0-1.8) 01/07/21 23:06 Lymph # (Auto) 1.5 K/mm3 (1.2-5.4) 01/07/21 23:06 [place] # (Auto) 1.0 K/mm3 (0.0-0.8) H 01/07/21 23:06 Eos # (Auto) 0.1 K/mm3 (0.0-0.4) 01/07/21 23:06 Baso # (Auto) 0.1 K/mm3 (0.0-0.1) 01/07/21 23:06 Seg Neutrophils % 75.0 % (40.0-70.0) H 01/07/21 23:06 Seg Neutrophils # 8.2 K/mm3 (1.8-7.7) H 01/07/21 23:06 Sodium 141 mmol/L (137-145) 01/07/21 23:06 Potassium 3.7 mmol/L (3.6-5.0) 01/07/21 23:06 Chloride 105.6 mmol/L (98-107) 01/07/21 23:06 Carbon Dioxide 19 mmol/L (22-30) L 01/07/21 23:06 Anion Gap 20 mmol/L 01/07/21 23:06 BUN 18 mg/dL (7-17) H 01/07/21 23:06 Creatinine 0.4 mg/dL (0.6-1.2) L 01/07/21 23:06 Estimated GFR > 60 ml/min 01/07/21 23:06 BUN/Creatinine Ratio 45 % 01/07/21 23:06 Glucose 92 mg/dL (65-100) 01/07/21 23:06 POC Glucose 158 mg/dL (70-105) H 01/07/21 19:47 Calcium 8.9 mg/dL (8.4-10.2) 01/07/21 23:06 Total Bilirubin 0.20 mg/dL (0.1-1.2) 01/07/21 23:06 AST 25 units/L (5-40) 01/07/21 23:06 ALT 26 units/L (7-56) 01/07/21 23:06 Alkaline Phosphatase 92 units/L (35-129) 01/07/21 23:06 Total Protein 6.8 g/dL (6.3-8.2) 01/07/21 23:06 Albumin 3.6 g/dL (3.9-5) L 01/07/21 23:06 Albumin/Globulin Ratio 1.1 % 01/07/21 23:06 Triglycerides 68 mg/dL (2-149) 01/07/21 23:06 Cholesterol 140 mg/dL (50-199) 01/07/21 23:06 LDL Cholesterol Direct 55 mg/dL (50-130) 01/07/21 23:06 HDL Cholesterol 70 mg/dL (40-59) H 01/07/21 23:06 Cholesterol/HDL Ratio 2.00 % 01/07/21 23:06 TSH 1.960 mlU/mL (0.270-4.200) 01/07/21 23:06 Hepatitis A IgM Ab Non-reactive (NonReactive) 01/07/21 23: Hep Bs Antigen Nonreactive (Negative) 01/07/21 23: Hep B Core IgM Ab Non-reactive (NonReactive) 01/07/21 23:06 Hepatitis C Antibody Non-reactive (NonReactive) 01/07/21 23:06 Last Vital Signs Temp 99.5 F 01/15/21 22:00 Pulse 76 01/15/21 22:00 Resp 16 01/15/21 22:00 BP 124/52 01/15/21 22:00 Pulse Ox 96 01/15/21 22:00
[2021-01-16] MEDS: MEMANTINE 10 MG TAB PO SCH ×2 (09:59→21:27)
[2021-01-16] MEDS: DONEPEZIL 10 MG TAB PO SCH (09:59)
[2021-01-16] MEDS: NYSTATIN CREAM 15 GM TUBE TP SCH ×2 (09:59→21:28)
[2021-01-16] MEDS: risperiDONE 0.25 MG TAB PO SCH ×2 (09:59→21:27)
[2021-01-16] MEDS: busPIRone 5 MG TAB PO SCH ×2 (09:59→21:27)
[2021-01-16] MEDS: VALPROIC ACID 250 MG/5 ML ORAL LIQD PO SCH (10:00)
[2021-01-16] MEDS: amLODIPine 5 MG TAB PO SCH (10:00)
[2021-01-16] MEDS: SERTRALINE 25 MG TAB PO SCH (10:00)
[2021-01-16] MEDS: methIMAzole 5 MG TAB PO SCH (10:00)
[2021-01-16] MEDS: MELATONIN 5 MG TAB PO SCH (21:27)
--- NOTE | 2021-01-17 08:34 | Progress Note ---
Subjective Date of service: 01/17/21 Principal diagnosis: Dementia with Behavioral Disturbance Subjective Comment: 01/15/2021: The patient was seen eating breakfast. The patient continues to present with some confusion. The patient was conversational and pleasant. The patient states mood as " I'm alright." 01/16/2021: The was seen in the activity room. The patient continues to be confused. She states she is doing well and mood as good. No changes made today. 01/17/2021: The patient was seen eating breakfast, she is calm. The patient is pleasantly confused. She states she is doing well and mood is fine. When asked about her location, she states " [place]." Reason for continued inpatient treatment: The appears to be improving. However, she is awaiting placement. REVIEW OF SYSTEMS Unable to assess MENTAL STATUS EXAMINATION General Appearance and Behavior: Age appropriate, good hygiene, wearing appropriate clothes. Cooperation: Cooperative, calm Psychomotor Behavior: Psychomotor normal Mood: " fine" Affect and affective range: congruent with stated mood Thought Process: confused Thought Content: Not suicidal Speech: Normal Suicidal Ideation: Denies Homicidal Ideation: Denies Hallucinations: Denies Delusions: None Impulse Control: Questionable Insight and Judgment: Limited insight, fair judgment Memory: Impaired Attention: Distractible Orientation: Confused Assessment and Plan (1) Dementia with Behavioral Disturbance Treatment Plan Patient admitted for inpatient psychiatric evaluation, medication adjustment and close monitoring The patient's behavior, mood, sleep and appetite will be closely monitored. Patient enrolled in individual and group therapeutic sessions and encouraged to attend. Patient provided with a safe and structured environment. Patient's physical health needs will be addressed by the Hospitalist. Hospitalist Consulted Labs including CBC, CMP, Lipid profile and Hemoglobin A1C levels ordered for baseline reference Social Assessment will be completed and the Public Health will work with patient and family to ensure a suitable and safe disposition Medication adjustment will be made as clinically indicated No changes made today Continue Risperidone 0.25mg po BID Continue Valproic 125mg po daily Usual Wellness Judaism/Preservation: - Start Trazodone 50 mg po QHS & 50 mg po QHS PRN between 10 PM & 2 AM for insomnia - Start Melatonin 5 mg po QHS to promote circadian rhythm The patient agreed on the treatment plan, understood the risk, benefit, alternative treatment, potential consequence of no treatment, and gave informed consent. Estimated days: Post hospital care: primary care provider, psychiatric provider Case staffed with Dr. Pendleton Medications and Allergies Allergies Allergy/AdvReac Type Severity Reaction Status Date / Time hydromorphone [From Dilaudid] Allergy Unknown Verified 01/07/21 14:25 peanut Allergy Unknown Verified 01/07/21 14:25 Home Medications Medication Instructions Recorded Confirmed Last Taken Type Amlodipine Besylate [Norvasc] 5 mg PO DAILY 01/07/21 01/07/21 Unknown History Melatonin [Melatonin 10MG TAB] 10 mg PO HS 01/07/21 01/07/21 Unknown History Memantine [Namenda] 10 mg PO BID 01/07/21 01/07/21 Unknown History Nystatin Cream [Mycostatin Cream] 1 applic TP BID 01/07/21 01/07/21 Unknown History Rosuvastatin Calcium [Crestor] 20 mg PO QHS 01/07/21 01/07/21 Unknown History Vitamin E 400 unit PO DAILY 01/07/21 01/07/21 Unknown History busPIRone [Buspar] 5 mg PO BID 01/07/21 01/07/21 Unknown History donepeziL [Aricept] 10 mg PO QDAY 01/07/21 01/07/21 Unknown History methIMAzole [Tapazole] 5 mg PO QDAY 01/07/21 01/07/21 Unknown History Active Meds: Active Medications Amlodipine Besylate (Amlodipine 5 Mg Tab) 5 mg PO DAILY [facility] Last Admin: 01/16/21 10:00 Dose: Not Given Documented by: Atorvastatin Calcium (Atorvastatin 40 Mg Tab) 40 mg PO QHS [facility] Last Admin: 01/16/21 21:27 Dose: 40 mg Documented by: Buspirone HCl (Buspirone 5 Mg Tab) 5 mg PO BID [facility] Last Admin: 01/16/21 21:27 Dose: 5 mg Documented by: Donepezil HCl (Donepezil 10 Mg Tab) 10 mg PO QDAY [facility] Last Admin: 01/16/21 09:59 Dose: 10 mg Documented by: Melatonin (Melatonin 5 Mg Tab) 10 mg PO QHS [facility] Last Admin: 01/16/21 21:27 Dose: 10 mg Documented by: Memantine (Memantine 10 Mg Tab) 10 mg PO BID [facility] Last Admin: 01/16/21 21:27 Dose: 10 mg Documented by: Methimazole (Methimazole 5 Mg Tab) 5 mg PO QDAY [facility] Last Admin: 01/16/21 10:00 Dose: 5 mg Documented by: Nystatin (Nystatin Cream 15 Gm Tube) 1 applic TP BID [facility] Last Admin: 01/16/21 21:28 Dose: 1 applic Documented by: Risperidone (Risperidone 0.25 Mg Tab) 0.25 mg PO BID [facility] Last Admin: 01/16/21 21:27 Dose: 0.25 mg Documented by: Sertraline HCl (Sertraline 25 Mg Tab) 25 mg PO QDAY [facility] Last Admin: 01/16/21 10:00 Dose: 25 mg Documented by: Valproic Acid (Valproic Acid 250 Mg/5 Ml Oral Liqd) 125 mg PO DAILY [facility] Last Admin: 01/16/21 10:00 Dose: 125 mg Documented by: Results - Results Labs/Vitals: Laboratory Last Values WBC 11.0 K/mm3 (4.5-11.0) 01/07/21 23:06 RBC 3.89 M/mm3 (3.65-5.03) 01/07/21 23:06 Hgb 12.4 gm/dl (10.1-14.3) 01/07/21 23:06 Hct 36.6 % (30.3-42.9) 01/07/21 23:06 MCV 94 fl (79-97) 01/07/21 23:06 MCH 32 pg (28-32) 01/07/21 23:06 MCHC 34 % (30-34) 01/07/21 23:06 RDW 14.3 % (13.2-15.2) 01/07/21 23:06 Plt Count 257 K/mm3 (140-440) 01/07/21 23:06 Lymph % (Auto) 13.7 % (13.4-35.0) 01/07/21 23:06 [place] % (Auto) 9.4 % (0.0-7.3) H 01/07/21 23:06 Eos % (Auto) 1.4 % (0.0-4.3) 01/07/21 23:06 Baso % (Auto) 0.5 % (0.0-1.8) 01/07/21 23:06 Lymph # (Auto) 1.5 K/mm3 (1.2-5.4) 01/07/21 23:06 [place] # (Auto) 1.0 K/mm3 (0.0-0.8) H 01/07/21 23:06 Eos # (Auto) 0.1 K/mm3 (0.0-0.4) 01/07/21 23:06 Baso # (Auto) 0.1 K/mm3 (0.0-0.1) 01/07/21 23:06 Seg Neutrophils % 75.0 % (40.0-70.0) H 01/07/21 23:06 Seg Neutrophils # 8.2 K/mm3 (1.8-7.7) H 01/07/21 23:06 Sodium 141 mmol/L (137-145) 01/07/21 23:06 Potassium 3.7 mmol/L (3.6-5.0) 01/07/21 23:06 Chloride 105.6 mmol/L (98-107) 01/07/21 23:06 Carbon Dioxide 19 mmol/L (22-30) L 01/07/21 23:06 Anion Gap 20 mmol/L 01/07/21 23:06 BUN 18 mg/dL (7-17) H 01/07/21 23:06 Creatinine 0.4 mg/dL (0.6-1.2) L 01/07/21 23:06 Estimated GFR > 60 ml/min 01/07/21 23:06 BUN/Creatinine Ratio 45 % 01/07/21 23:06 Glucose 92 mg/dL (65-100) 01/07/21 23:06 POC Glucose 158 mg/dL (70-105) H 01/07/21 19:47 Calcium 8.9 mg/dL (8.4-10.2) 01/07/21 23:06 Total Bilirubin 0.20 mg/dL (0.1-1.2) 01/07/21 23:06 AST 25 units/L (5-40) 01/07/21 23:06 ALT 26 units/L (7-56) 01/07/21 23:06 Alkaline Phosphatase 92 units/L (35-129) 01/07/21 23:06 Total Protein 6.8 g/dL (6.3-8.2) 01/07/21 23:06 Albumin 3.6 g/dL (3.9-5) L 01/07/21 23:06 Albumin/Globulin Ratio 1.1 % 01/07/21 23:06 Triglycerides 68 mg/dL (2-149) 01/07/21 23:06 Cholesterol 140 mg/dL (50-199) 01/07/21 23:06 LDL Cholesterol Direct 55 mg/dL (50-130) 01/07/21 23:06 HDL Cholesterol 70 mg/dL (40-59) H 01/07/21 23:06 Cholesterol/HDL Ratio 2.00 % 01/07/21 23:06 TSH 1.960 mlU/mL (0.270-4.200) 01/07/21 23:06 Coronavirus (PCR) Negative (Negative) 01/16/21 Unknown Hepatitis A IgM Ab Non-reactive (NonReactive) 01/07/21 23:06 Hep Bs Antigen Nonreactive (Negative) 01/07/21 23:06 Hep B Core IgM Ab Non-reactive (NonReactive) 01/07/21 23:06 Hepatitis C Antibody Non-reactive (NonReactive) 01/07/21 23:06 Last Vital Signs Temp 98.7 F 01/17/21 07:33 Pulse 86 01/17/21 07:33 Resp 16 01/17/21 07:33 BP 120/68 01/17/21 07:33 Pulse Ox 91 01/17/21 07:33
[2021-01-17] MEDS: amLODIPine 5 MG TAB PO SCH (10:00)
[2021-01-17] MEDS: DONEPEZIL 10 MG TAB PO SCH (10:00)
[2021-01-17] MEDS: busPIRone 5 MG TAB PO SCH ×2 (10:00→21:35)
[2021-01-17] MEDS: NYSTATIN CREAM 15 GM TUBE TP SCH ×2 (10:00→21:36)
[2021-01-17] MEDS: methIMAzole 5 MG TAB PO SCH (10:00)
[2021-01-17] MEDS: MEMANTINE 10 MG TAB PO SCH ×2 (10:00→21:36)
[2021-01-17] MEDS: SERTRALINE 25 MG TAB PO SCH (10:00)
[2021-01-17] MEDS: VALPROIC ACID 250 MG/5 ML ORAL LIQD PO SCH (10:01)
[2021-01-17] MEDS: risperiDONE 0.25 MG TAB PO SCH ×2 (10:01→21:37)
[2021-01-17] MEDS: MELATONIN 5 MG TAB PO SCH (21:36)
--- NOTE | 2021-01-18 08:46 | Progress Note ---
Subjective Date of service: 01/18/21 Principal diagnosis: Dementia with Behavioral Disturbance Subjective Comment: 01/15/2021: The patient was seen eating breakfast. The patient continues to present with some confusion. The patient was conversational and pleasant. The patient states mood as " I'm alright." 01/16/2021: The was seen in the activity room. The patient continues to be confused. She states she is doing well and mood as good. No changes made today. 01/17/2021: The patient was seen eating breakfast, she is calm. The patient is pleasantly confused. She states she is doing well and mood is fine. When asked about her location, she states " [place]." 01/18/2021: The patient was seen this morning, still confused. She reports mood as good. states appetite and sleep as good. No complain voiced at this time. Reason for continued inpatient treatment: The appears to be improving. However, she is awaiting placement. REVIEW OF SYSTEMS Unable to assess MENTAL STATUS EXAMINATION General Appearance and Behavior: Age appropriate, good hygiene, wearing appropriate clothes. Cooperation: Cooperative, calm Psychomotor Behavior: Psychomotor normal Mood: " good" Affect and affective range: congruent with stated mood Thought Process: confused Thought Content: Not suicidal Speech: Normal Suicidal Ideation: Denies Homicidal Ideation: Denies Hallucinations: Denies Delusions: None Impulse Control: Questionable Insight and Judgment: Limited insight, fair judgment Memory: Impaired Attention: Distractible Orientation: Confused Assessment and Plan (1) Dementia with Behavioral Disturbance Treatment Plan Patient admitted for inpatient psychiatric evaluation, medication adjustment and close monitoring The patient's behavior, mood, sleep and appetite will be closely monitored. Patient enrolled in individual and group therapeutic sessions and encouraged to attend. Patient provided with a safe and structured environment. Patient's physical health needs will be addressed by the Hospitalist. [facility] Consulted Labs including CBC, CMP, Lipid profile and Hemoglobin A1C levels ordered for baseline reference Social Assessment will be completed and the Metal Bench Patternmaker will work with patient and family to ensure a suitable and safe disposition Medication adjustment will be made as clinically indicated No changes made today Continue Risperidone 0.25mg po BID Continue Valproic 125mg po daily Usual Wellness [employer]/Preservation: - Start Trazodone 50 mg po QHS & 50 mg po QHS PRN between 10 PM & 2 AM for insomnia - Start Melatonin 5 mg po QHS to promote circadian rhythm The patient agreed on the treatment plan, understood the risk, benefit, alternative treatment, potential consequence of no treatment, and gave informed consent. Estimated days: Post hospital care: primary care provider, psychiatric provider Case staffed with Dr. Pendleton Medications and Allergies Medications and Allergies Allergies Allergy/AdvReac Type Severity Reaction Status Date / Time hydromorphone [From Dilaudid] Allergy Unknown Verified 01/07/21 14:25 peanut Allergy Unknown Verified 01/07/21 14:25 Home Medications Medication Instructions Recorded Confirmed Last Taken Type Amlodipine Besylate [Norvasc] 5 mg PO DAILY 01/07/21 01/07/21 Unknown History Melatonin [Melatonin 10MG TAB] 10 mg PO HS 01/07/21 01/07/21 Unknown History Memantine [Namenda] 10 mg PO BID 01/07/21 01/07/21 Unknown History Nystatin Cream [Mycostatin Cream] 1 applic TP BID 01/07/21 01/07/21 Unknown History Rosuvastatin Calcium [Crestor] 20 mg PO QHS 01/07/21 01/07/21 Unknown History Vitamin E 400 unit PO DAILY 01/07/21 01/07/21 Unknown History busPIRone [Buspar] 5 mg PO BID 01/07/21 01/07/21 Unknown History donepeziL [Aricept] 10 mg PO QDAY 01/07/21 01/07/21 Unknown History methIMAzole [Tapazole] 5 mg PO QDAY 01/07/21 01/07/21 Unknown History Active Meds: Active Medications Amlodipine Besylate (Amlodipine 5 Mg Tab) 5 mg PO DAILY [facility] Last Admin: 01/17/21 10:00 Dose: 5 mg Documented by: Atorvastatin Calcium (Atorvastatin 40 Mg Tab) 40 mg PO QHS [facility] Last Admin: 01/17/21 21:36 Dose: 40 mg Documented by: Buspirone HCl (Buspirone 5 Mg Tab) 5 mg PO BID [facility] Last Admin: 01/17/21 21:35 Dose: 5 mg Documented by: Donepezil HCl (Donepezil 10 Mg Tab) 10 mg PO QDAY [facility] Last Admin: 01/17/21 10:00 Dose: 10 mg Documented by: Melatonin (Melatonin 5 Mg Tab) 10 mg PO QHS [facility] Last Admin: 01/17/21 21:36 Dose: 10 mg Documented by: Memantine (Memantine 10 Mg Tab) 10 mg PO BID [facility] Last Admin: 01/17/21 21:36 Dose: 10 mg Documented by: Methimazole (Methimazole 5 Mg Tab) 5 mg PO QDAY [facility] Last Admin: 01/17/21 10:00 Dose: 5 mg Documented by: Nystatin (Nystatin Cream 15 Gm Tube) 1 applic TP BID [facility] Last Admin: 01/17/21 21:36 Dose: 1 applic Documented by: Risperidone (Risperidone 0.25 Mg Tab) 0.25 mg PO BID [facility] Last Admin: 01/17/21 21:37 Dose: 0.25 mg Documented by: Sertraline HCl (Sertraline 25 Mg Tab) 25 mg PO QDAY [facility] Last Admin: 01/17/21 10:00 Dose: 25 mg Documented by: Valproic Acid (Valproic Acid 250 Mg/5 Ml Oral Liqd) 125 mg PO DAILY [facility] Last Admin: 01/17/21 10:01 Dose: 125 mg Documented by: Results - Results Labs/Vitals: Laboratory Last Values WBC 11.0 K/mm3 (4.5-11.0) 01/07/21 23:06 RBC 3.89 M/mm3 (3.65-5.03) 01/07/21 23:06 Hgb 12.4 gm/dl (10.1-14.3) 01/07/21 23:06 Hct 36.6 % (30.3-42.9) 01/07/21 23:06 MCV 94 fl (79-97) 01/07/21 23:06 MCH 32 pg (28-32) 01/07/21 23:06 MCHC 34 % (30-34) 01/07/21 23:06 RDW 14.3 % (13.2-15.2) 01/07/21 23:06 Plt Count 257 K/mm3 (140-440) 01/07/21 23:06 Lymph % (Auto) 13.7 % (13.4-35.0) 01/07/21 23:06 [place] % (Auto) 9.4 % (0.0-7.3) H 01/07/21 23:06 Eos % (Auto) 1.4 % (0.0-4.3) 01/07/21 23:06 Baso % (Auto) 0.5 % (0.0-1.8) 01/07/21 23:06 Lymph # (Auto) 1.5 K/mm3 (1.2-5.4) 01/07/21 23:06 [place] # (Auto) 1.0 K/mm3 (0.0-0.8) H 01/07/21 23:06 Eos # (Auto) 0.1 K/mm3 (0.0-0.4) 01/07/21 23:06 Baso # (Auto) 0.1 K/mm3 (0.0-0.1) 01/07/21 23:06 Seg Neutrophils % 75.0 % (40.0-70.0) H 01/07/21 23:06 Seg Neutrophils # 8.2 K/mm3 (1.8-7.7) H 01/07/21 23:06 Sodium 141 mmol/L (137-145) 01/07/21 23:06 Potassium 3.7 mmol/L (3.6-5.0) 01/07/21 23:06 Chloride 105.6 mmol/L (98-107) 01/07/21 23:06 Carbon Dioxide 19 mmol/L (22-30) L 01/07/21 23:06 Anion Gap 20 mmol/L 01/07/21 23:06 BUN 18 mg/dL (7-17) H 01/07/21 23:06 Creatinine 0.4 mg/dL (0.6-1.2) L 01/07/21 23:06 Estimated GFR > 60 ml/min 01/07/21 23:06 BUN/Creatinine Ratio 45 % 01/07/21 23:06 Glucose 92 mg/dL (65-100) 01/07/21 23:06 POC Glucose 158 mg/dL (70-105) H 01/07/21 19:47 Calcium 8.9 mg/dL (8.4-10.2) 01/07/21 23:06 Total Bilirubin 0.20 mg/dL (0.1-1.2) 01/07/21 23:06 AST 25 units/L (5-40) 01/07/21 23:06 ALT 26 units/L (7-56) 01/07/21 23:06 Alkaline Phosphatase 92 units/L (35-129) 01/07/21 23:06 Total Protein 6.8 g/dL (6.3-8.2) 01/07/21 23:06 Albumin 3.6 g/dL (3.9-5) L 01/07/21 23:06 Albumin/Globulin Ratio 1.1 % 01/07/21 23:06 Triglycerides 68 mg/dL (2-149) 01/07/21 23:06 Cholesterol 140 mg/dL (50-199) 01/07/21 23:06 LDL Cholesterol Direct 55 mg/dL (50-130) 01/07/21 23:06 HDL Cholesterol 70 mg/dL (40-59) H 01/07/21 23:06 Cholesterol/HDL Ratio 2.00 % 01/07/21 23:06 TSH 1.960 mlU/mL (0.270-4.200) 01/07/21 23:06 Coronavirus (PCR) Negative (Negative) 01/16/21 Unknown Hepatitis A IgM Ab Non-reactive (NonReactive) 01/07/21 23:06 Hep Bs Antigen Nonreactive (Negative) 01/07/21 23:06 Hep B Core IgM Ab Non-reactive (NonReactive) 01/07/21 23:06 Hepatitis C Antibody Non-reactive (NonReactive) 01/07/21 23:06 Last Vital Signs Temp 98.7 F 01/17/21 19:26 Pulse 70 01/17/21 19:26 Resp 16 01/17/21 19:26 BP 129/48 01/17/21 19:26 Pulse Ox 93 01/17/21 19:26
[2021-01-18] MEDS: VALPROIC ACID 250 MG/5 ML ORAL LIQD PO SCH (10:41)
[2021-01-18] MEDS: methIMAzole 5 MG TAB PO SCH (10:42)
[2021-01-18] MEDS: risperiDONE 0.25 MG TAB PO SCH ×2 (10:42→21:16)
[2021-01-18] MEDS: MEMANTINE 10 MG TAB PO SCH ×2 (10:42→21:17)
[2021-01-18] MEDS: SERTRALINE 25 MG TAB PO SCH (10:42)
[2021-01-18] MEDS: busPIRone 5 MG TAB PO SCH ×2 (10:42→21:16)
[2021-01-18] MEDS: DONEPEZIL 10 MG TAB PO SCH (10:43)
[2021-01-18] MEDS: NYSTATIN CREAM 15 GM TUBE TP SCH ×2 (10:43→21:17)
[2021-01-18] MEDS: amLODIPine 5 MG TAB PO SCH (10:45)
[2021-01-18] MEDS: MELATONIN 5 MG TAB PO SCH (21:17)
[2021-01-19] MEDS: DONEPEZIL 10 MG TAB PO SCH (09:27)
[2021-01-19] MEDS: busPIRone 5 MG TAB PO SCH ×2 (09:31→21:56)
[2021-01-19] MEDS: SERTRALINE 25 MG TAB PO SCH (09:32)
[2021-01-19] MEDS: MEMANTINE 10 MG TAB PO SCH ×2 (09:32→21:56)
[2021-01-19] MEDS: risperiDONE 0.25 MG TAB PO SCH ×2 (09:32→21:56)
[2021-01-19] MEDS: amLODIPine 5 MG TAB PO SCH (09:32)
[2021-01-19] MEDS: methIMAzole 5 MG TAB PO SCH (09:32)
[2021-01-19] MEDS: VALPROIC ACID 250 MG/5 ML ORAL LIQD PO SCH (09:34)
--- NOTE | 2021-01-19 10:26 | Progress Note ---
Subjective Date of service: 01/19/21 Principal diagnosis: Dementia with Behavioral Disturbance Subjective Comment: 01/15/2021: The patient was seen eating breakfast. The patient continues to present with some confusion. The patient was conversational and pleasant. The patient states mood as " I'm alright." 01/16/2021: The was seen in the activity room. The patient continues to be confused. She states she is doing well and mood as good. No changes made today. 01/17/2021: The patient was seen eating breakfast, she is calm. The patient is pleasantly confused. She states she is doing well and mood is fine. When asked about her location, she states " [place]." 01/18/2021: The patient was seen this morning, still confused. She reports mood as good. states appetite and sleep as good. No complain voiced at this time. 01/19/2021: The patient was seen this morning, still confused. She reports mood as good. states appetite and sleep as good. No changes made today. Reason for continued inpatient treatment: The appears to be improving. However, she is awaiting placement. REVIEW OF SYSTEMS Unable to assess MENTAL STATUS EXAMINATION General Appearance and Behavior: Age appropriate, good hygiene, wearing appropriate clothes. Cooperation: Cooperative, calm Psychomotor Behavior: Psychomotor normal Mood: " fine" Affect and affective range: congruent with stated mood Thought Process: confused Thought Content: Not suicidal Speech: Normal Suicidal Ideation: Denies Homicidal Ideation: Denies Hallucinations: Denies Delusions: None Impulse Control: Questionable Insight and Judgment: Limited insight, fair judgment Memory: Impaired Attention: Distractible Orientation: Confused Assessment and Plan (1) Dementia with Behavioral Disturbance Treatment Plan Patient admitted for inpatient psychiatric evaluation, medication adjustment and close monitoring The patient's behavior, mood, sleep and appetite will be closely monitored. Patient enrolled in individual and group therapeutic sessions and encouraged to attend. Patient provided with a safe and structured environment. Patient's physical health needs will be addressed by the Hospitalist. [facility] Consulted Labs including CBC, CMP, Lipid profile and Hemoglobin A1C levels ordered for baseline reference Social Assessment will be completed and the Filterer will work with patient and family to ensure a suitable and safe disposition Medication adjustment will be made as clinically indicated No changes made today Continue Risperidone 0.25mg po BID Continue Valproic 125mg po daily Usual Wellness [employer]/Preservation: - Start Trazodone 50 mg po QHS & 50 mg po QHS PRN between 10 PM & 2 AM for insomnia - Start Melatonin 5 mg po QHS to promote circadian rhythm The patient agreed on the treatment plan, understood the risk, benefit, alternative treatment, potential consequence of no treatment, and gave informed consent. Estimated days: Post hospital care: primary care provider, psychiatric provider Case staffed with Dr. Pendleton Medications and Allergies Medications and Allergies Allergies Medications and Allergies Allergies Allergy/AdvReac Type Severity Reaction Status Date / Time hydromorphone [From Dilaudid] Allergy Unknown Verified 01/07/21 14:25 peanut Allergy Unknown Verified 01/07/21 14:25 Home Medications Medication Instructions Recorded Confirmed Last Taken Type Amlodipine Besylate [Norvasc] 5 mg PO DAILY 01/07/21 01/07/21 Unknown History Melatonin [Melatonin 10MG TAB] 10 mg PO HS 01/07/21 01/07/21 Unknown History Memantine [Namenda] 10 mg PO BID 01/07/21 01/07/21 Unknown History Nystatin Cream [Mycostatin Cream] 1 applic TP BID 01/07/21 01/07/21 Unknown History Rosuvastatin Calcium [Crestor] 20 mg PO QHS 01/07/21 01/07/21 Unknown History Vitamin E 400 unit PO DAILY 01/07/21 01/07/21 Unknown History busPIRone [Buspar] 5 mg PO BID 01/07/21 01/07/21 Unknown History donepeziL [Aricept] 10 mg PO QDAY 01/07/21 01/07/21 Unknown History methIMAzole [Tapazole] 5 mg PO QDAY 01/07/21 01/07/21 Unknown History Active Meds: Active Medications Amlodipine Besylate (Amlodipine 5 Mg Tab) 5 mg PO DAILY [facility] Last Admin: 01/19/21 09:32 Dose: 5 mg Documented by: Atorvastatin Calcium (Atorvastatin 40 Mg Tab) 40 mg PO QHS [facility] Last Admin: 01/18/21 21:17 Dose: 40 mg Documented by: Buspirone HCl (Buspirone 5 Mg Tab) 5 mg PO BID [facility] Last Admin: 01/19/21 09:31 Dose: 5 mg Documented by: Donepezil HCl (Donepezil 10 Mg Tab) 10 mg PO QDAY [facility] Last Admin: 01/19/21 09:27 Dose: 10 mg Documented by: Melatonin (Melatonin 5 Mg Tab) 10 mg PO QHS [facility] Last Admin: 01/18/21 21:17 Dose: 10 mg Documented by: Memantine (Memantine 10 Mg Tab) 10 mg PO BID [facility] Last Admin: 01/19/21 09:32 Dose: 10 mg Documented by: Methimazole (Methimazole 5 Mg Tab) 5 mg PO QDAY [facility] Last Admin: 01/19/21 09:32 Dose: 5 mg Documented by: Nystatin (Nystatin Cream 15 Gm Tube) 1 applic TP BID [facility] Last Admin: 01/18/21 21:17 Dose: 1 applic Documented by: Risperidone (Risperidone 0.25 Mg Tab) 0.25 mg PO BID [facility] Last Admin: 01/19/21 09:32 Dose: 0.25 mg Documented by: Sertraline HCl (Sertraline 25 Mg Tab) 25 mg PO QDAY [facility] Last Admin: 01/19/21 09:32 Dose: 25 mg Documented by: Valproic Acid (Valproic Acid 250 Mg/5 Ml Oral Liqd) 125 mg PO DAILY [facility] Last Admin: 01/19/21 09:34 Dose: 125 mg Documented by: Results - Results Labs/Vitals: Laboratory Last Values WBC 11.0 K/mm3 (4.5-11.0) 01/07/21 23:06 RBC 3.89 M/mm3 (3.65-5.03) 01/07/21 23:06 Hgb 12.4 gm/dl (10.1-14.3) 01/07/21 23:06 Hct 36.6 % (30.3-42.9) 01/07/21 23:06 MCV 94 fl (79-97) 01/07/21 23:06 MCH 32 pg (28-32) 01/07/21 23:06 MCHC 34 % (30-34) 01/07/21 23:06 RDW 14.3 % (13.2-15.2) 01/07/21 23:06 Plt Count 257 K/mm3 (140-440) 01/07/21 23:06 Lymph % (Auto) 13.7 % (13.4-35.0) 01/07/21 23:06 [place] % (Auto) 9.4 % (0.0-7.3) H 01/07/21 23:06 Eos % (Auto) 1.4 % (0.0-4.3) 01/07/21 23:06 Baso % (Auto) 0.5 % (0.0-1.8) 01/07/21 23:06 Lymph # (Auto) 1.5 K/mm3 (1.2-5.4) 01/07/21 23:06 [place] # (Auto) 1.0 K/mm3 (0.0-0.8) H 01/07/21 23:06 Eos # (Auto) 0.1 K/mm3 (0.0-0.4) 01/07/21 23:06 Baso # (Auto) 0.1 K/mm3 (0.0-0.1) 01/07/21 23:06 Seg Neutrophils % 75.0 % (40.0-70.0) H 01/07/21 23:06 Seg Neutrophils # 8.2 K/mm3 (1.8-7.7) H 01/07/21 23:06 Sodium 141 mmol/L (137-145) 01/07/21 23:06 Potassium 3.7 mmol/L (3.6-5.0) 01/07/21 23:06 Chloride 105.6 mmol/L (98-107) 01/07/21 23:06 Carbon Dioxide 19 mmol/L (22-30) L 01/07/21 23:06 Anion Gap 20 mmol/L 01/07/21 23:06 BUN 18 mg/dL (7-17) H 01/07/21 23:06 Creatinine 0.4 mg/dL (0.6-1.2) L 01/07/21 23:06 Estimated GFR > 60 ml/min 01/07/21 23:06 BUN/Creatinine Ratio 45 % 01/07/21 23:06 Glucose 92 mg/dL (65-100) 01/07/21 23:06 POC Glucose 158 mg/dL (70-105) H 01/07/21 19:47 Calcium 8.9 mg/dL (8.4-10.2) 01/07/21 23:06 Total Bilirubin 0.20 mg/dL (0.1-1.2) 01/07/21 23:06 AST 25 units/L (5-40) 01/07/21 23:06 ALT 26 units/L (7-56) 01/07/21 23:06 Alkaline Phosphatase 92 units/L (35-129) 01/07/21 23:06 Total Protein 6.8 g/dL (6.3-8.2) 01/07/21 23:06 Albumin 3.6 g/dL (3.9-5) L 01/07/21 23:06 Albumin/Globulin Ratio 1.1 % 01/07/21 23:06 Triglycerides 68 mg/dL (2-149) 01/07/21 23:06 Cholesterol 140 mg/dL (50-199) 01/07/21 23:06 LDL Cholesterol Direct 55 mg/dL (50-130) 01/07/21 23:06 HDL Cholesterol 70 mg/dL (40-59) H 01/07/21 23:06 Cholesterol/HDL Ratio 2.00 % 01/07/21 23:06 TSH 1.960 mlU/mL (0.270-4.200) 01/07/21 23:06 Coronavirus (PCR) Negative (Negative) 01/16/21 Unknown Hepatitis A IgM Ab Non-reactive (NonReactive) 01/07/21 23:06 Hep Bs Antigen Nonreactive (Negative) 01/07/21 23:06 Hep B Core IgM Ab Non-reactive (NonReactive) 01/07/21 23:06 Hepatitis C Antibody Non-reactive (NonReactive) 01/07/21 23:06 Last Vital Signs Temp 99.0 F 01/18/21 19:38 Pulse 77 01/19/21 09:32 Resp 18 01/18/21 19:38 BP 120/55 01/19/21 09:32 Pulse Ox 97 01/18/21 19:39
[2021-01-19] MEDS: NYSTATIN CREAM 15 GM TUBE TP SCH ×2 (21:55→21:56)
[2021-01-19] MEDS: MELATONIN 5 MG TAB PO SCH (21:56)
--- NOTE | 2021-01-20 09:23 | Discharge Summary ---
Providers - Providers Date of Admission: 01/07/21 18:40 Date of discharge: 01/20/21 Attending physician: ZAFAR COLLAZO MD 01/07/21 13:26 Consult to Physician [CONS] Routine Comment: Consulting Provider: ROYA DUEÑAS Physician Instructions: Reason For Exam: manage existing medical problems 01/08/21 10:47 Occupational Therapy Evaluate and Treat [CONS] Routine Comment: Reason For Exam: eval and treat Physical Therapy Evaluation and Treat [CONS] Routine Comment: Reason For Exam: assess strength and ability Primary care physician: DRYWALL WORKER Hospitalization Condition: Stable Hospital course: The patient was provided inpatient psychiatric treatment with safe and supportive environment, group/individual therapy, psychiatric medication, medication adjustment, adverse effect monitor, medical evaluation, medical treatment, social service assessment, social support meeting, placement assessment and psycho-education. The patients mood, cognition, behavior, motivation, compliance to treatment and appreciation on family/social support are improved and stabilized. At the time of discharge, the patient had no suici jia ideas, no homicidal ideas, no aggressive thoughts, no endangering behavior and no debilitating adverse effects. The patient agreed on the treatment plan, understood the risk, benefit, alternative treatment, potential consequence of no treatment, and gave informed consent. Progress Notes: 01/09/2021:The patient was seen today. She has orange marker on her eyebrows. She is confused. She says "I'm dressed and back in school now." The patient says she feels okay when asked. She then starts saying her daughter was head here. 01/10/2021:The patient was seen today. She has orange marker on her eyebrows. She is confused. She says she feels fine and she slept well. The patient denies SI/HI. She is talking to herself and leaning in front of her juice whispering "you're hurting me." 01/11/2021: The patient was seen today. She is lying down in bed awake. The patient is confused, but pleasant. She says "life is great." The patient says she feels "fine" when asked. She also says she slept good. She is rambling. 01/12/2021:The patient was seen today. She is calm and pleasant. She is confused. The patient says she feels "pretty good." She denies SI/HI. She says she slept well. Staff states the patient was agitated & combative during AM care and requires constant redirection. 01/13/2021:The patient was seen today. She is calm and pleasant. She is confused, but presents more organized today. She says she slept good and feels fine. The patient will need to be placed because she can not be managed at home. The family is wanting the patient in a NH. :The patient was seen today. She is calm and pleasant. She is confused. She is sitting quietly in the dayroom. She says "fine" when I ask her how she feels. The patient then starts rambling about her daughter. I mention that I spoke to her daughter. She says "Lillie." 01/15/2021: The patient was seen eating breakfast. The patient continues to present with some confusion. The patient was conversational and pleasant. The patient states mood as " I'm alright." 01/16/2021: The was seen in the activity room. The patient continues to be confused. She states she is doing well and mood as good. No changes made today. 01/17/2021: The patient was seen eating breakfast, she is calm. The patient is pleasantly confused. She states she is doing well and mood is fine. When asked about her location, she states " [place]." 01/18/2021: The patient was seen this morning, still confused. She reports mood as good. states appetite and sleep as good. No complain voiced at this time. 01/19/2021: The patient was seen this morning, still confused. She reports mood as good. states appetite and sleep as good. No changes made today. Disposition: HOME / SELF CARE / HOMELESS Allergies/Adverse Reactions: Allergies hydromorphone [From Dilaudid] Allergy (Verified 01/07/21 14:25) Unknown causes hallucinations peanut Allergy (Verified 01/07/21 14:25) Unknown causes foaming at mouth Vital Signs: Last Vital Signs Temp 98.7 F 01/19/21 20:14 Pulse 81 01/19/21 20:14 Resp 16 01/19/21 20:14 BP 133/61 01/19/21 20:14 Pulse Ox 94 01/19/21 20:14 Last Lab: Laboratory Last Values WBC 11.0 K/mm3 (4.5-11.0) 01/07/21 23:06 RBC 3.89 M/mm3 (3.65-5.03) 01/07/21 23:06 Hgb 12.4 gm/dl (10.1-14.3) 01/07/21 23:06 Hct 36.6 % (30.3-42.9) 01/07/21 23:06 MCV 94 fl (79-97) 01/07/21 23:06 MCH 32 pg (28-32) 01/07/21 23:06 MCHC 34 % (30-34) 01/07/21 23:06 RDW 14.3 % (13.2-15.2) 01/07/21 23:06 Plt Count 257 K/mm3 (140-440) 01/07/21 23:06 Lymph % (Auto) 13.7 % (13.4-35.0) 01/07/21 23:06 [place] % (Auto) 9.4 % (0.0-7.3) H 01/07/21 23:06 Eos % (Auto) 1.4 % (0.0-4.3) 01/07/21 23:06 Baso % (Auto) 0.5 % (0.0-1.8) 01/07/21 23:06 Lymph # (Auto) 1.5 K/mm3 (1.2-5.4) 01/07/21 23:06 [place] # (Auto) 1.0 K/mm3 (0.0-0.8) H 01/07/21 23:06 Eos # (Auto) 0.1 K/mm3 (0.0-0.4) 01/07/21 23:06 Baso # (Auto) 0.1 K/mm3 (0.0-0.1) 01/07/21 23:06 Seg Neutrophils % 75.0 % (40.0-70.0) H 01/07/21 23:06 Seg Neutrophils # 8.2 K/mm3 (1.8-7.7) H 01/07/21 23:06 Sodium 141 mmol/L (137-145) 01/07/21 23:06 Potassium 3.7 mmol/L (3.6-5.0) 01/07/21 23:06 Chloride 105.6 mmol/L (98-107) 01/07/21 23:06 Carbon Dioxide 19 mmol/L (22-30) L 01/07/21 23:06 Anion Gap 20 mmol/L 01/07/21 23:06 BUN 18 mg/dL (7-17) H 01/07/21 23:06 Creatinine 0.4 mg/dL (0.6-1.2) L 01/07/21 23:06 Estimated GFR > 60 ml/min 01/07/21 23:06 BUN/Creatinine Ratio 45 % 01/07/21 23:06 Glucose 92 mg/dL (65-100) 01/07/21 23:06 POC Glucose 158 mg/dL (70-105) H 01/07/21 19:47 Calcium 8.9 mg/dL (8.4-10.2) 01/07/21 23:06 Total Bilirubin 0.20 mg/dL (0.1-1.2) 01/07/21 23:06 AST 25 units/L (5-40) 01/07/21 23:06 ALT 26 units/L (7-56) 01/07/21 23:06 Alkaline Phosphatase 92 units/L (35-129) 01/07/21 23:06 Total Protein 6.8 g/dL (6.3-8.2) 01/07/21 23:06 Albumin 3.6 g/dL (3.9-5) L 01/07/21 23:06 Albumin/Globulin Ratio 1.1 % 01/07/21 23:06 Triglycerides 68 mg/dL (2-149) 01/07/21 23:06 Cholesterol 140 mg/dL (50-199) 01/07/21 23:06 LDL Cholesterol Direct 55 mg/dL (50-130) 01/07/21 23:06 HDL Cholesterol 70 mg/dL (40-59) H 01/07/21 23:06 Cholesterol/HDL Ratio 2.00 % 01/07/21 23:06 TSH 1.960 mlU/mL (0.270-4.200) 01/07/21 23:06 Coronavirus (PCR) Negative (Negative) 01/16/21 Unknown Hepatitis A IgM Ab Non-reactive (NonReactive) 01/07/21 23:06 Hep Bs Antigen Nonreactive (Negative) 01/07/21 23:06 Hep B Core IgM Ab Non-reactive (NonReactive) 01/07/21 23:06 Hepatitis C Antibody Non-reactive (NonReactive) 01/07/21 23:06 Core Measure Documentation - Palliative Care Palliative Care/ Comfort Measures: Not Applicable - Core Measures Any of the following diagnoses?: none - VTE Discharge Requirements Deep Vein Thrombosis/Pulmonary Embolism Present on Admission: No Exam - Constitutional Vitals: Temp Pulse Resp BP Pulse Ox 98.7 F 81 16 133/61 94 01/19/21 20:14 01/19/21 20:14 01/19/21 20:14 01/19/21 20:14 01/19/21 20:14 Plan Diet: regular Care Plan Goals: Maintain good and stable mental health. Plan of Treatment: The patient should be compliant with medications, not to use drugs and not to drink alcohol. The patient understands that if suicidal ideas, homicidal ideas, or any endangering thoughts arise, the patient should immediately seek for emergent assistance including but not limited to crisis hot line and emergency room. Follow up with outpatient Psychiatrist and PCP within 7 - 14 days of disch arge. Follow up with: PRIMARY CARE, [Primary Care Provider] - 7 Days
[2021-01-20] MEDS: methIMAzole 5 MG TAB PO SCH (09:41)
[2021-01-20] MEDS: NYSTATIN CREAM 15 GM TUBE TP SCH (09:41)
[2021-01-20] MEDS: VALPROIC ACID 250 MG/5 ML ORAL LIQD PO SCH (09:41)
[2021-01-20] MEDS: MEMANTINE 10 MG TAB PO SCH (09:41)
[2021-01-20] MEDS: DONEPEZIL 10 MG TAB PO SCH (09:41)
[2021-01-20] MEDS: SERTRALINE 25 MG TAB PO SCH (09:42)
[2021-01-20] MEDS: busPIRone 5 MG TAB PO SCH (09:42)
[2021-01-20] MEDS: risperiDONE 0.25 MG TAB PO SCH (09:42)
[2021-01-20] MEDS: amLODIPine 5 MG TAB PO SCH (09:52)
[2021-01-20 09:53] VITALS: BP 112/55
== END 2021-01-20 09:50 | disposition home or self-care (01) | DRG 884 ==
LOC: UNDOADMIN 12:45 → 3A 12:45 → 5A 18:40
PROVIDERS: ADMIT Psychiatry & Neurology Psychiatry; ATTEND Psychiatry & Neurology Psychiatry
DX: F03.91 Unspecified dementia, unspecified severity, with behavioral disturbance (principal); Z20.822 Contact with and (suspected) exposure to COVID-19; E05.90 Thyrotoxicosis, unspecified without thyrotoxic crisis or storm; I10 Essential (primary) hypertension; E78.5 Hyperlipidemia, unspecified; Z91.010 Allergy to peanuts; Z88.8 Allergy status to other drugs, medicaments and biological substances; Z87.891 Personal history of nicotine dependence
CPT/HCPCS: 36415; 71045; 80053; 80061; 80074; 82962; 84443; 85025; G0378; A9270-GY; U0003